=== PATIENT | male | born 1935 | race Caucasian/White ===

== ENCOUNTER → 2020-01-21 | Outpatient (CLI) | payer MEDICARE ==
[~2020-01-21] MED LIST: ASPI81CH PO; AZIT200SU PO; BLOOD PRESSURE MED?; CARV6.25 PO; CEFD300 PO; FAMO20; FISH OIL 1,0001 EAC1; HYDACE5; HYDACE5 PO; IRBHYD150; IRBHYD150 PO; Inderal40 MG; LATA.005SO BOTHEYES; Mysoline250 MG PO; OMEP10ER; PRIM50 PO; ROXICODONE5 MG PO; TYLECOD3 PO
[2020-01-21 09:42] LABS: Alanine Aminotransfer (ALT/SGP 68 U/L (12-78); Albumin, Blood 3.7 g/dL (3.4-5.0); Alk Phos 64 U/L (40-126); Anion Gap 9 mmol/L (6-16); Aspartate Aminotrans (AST/SGOT 59 U/L (12-37); Bilirubin, Total 1.2 mg/dL (0.1-1.0); Blood Urea Nitrogen 23 mg/dL (8-24); Bun/Creatinine Ratio 15.4 (12.0-20.0); CO2, Blood 29 mmol/L (21-32); Calcium, Blood 8.8 mg/dL (8.5-10.1); Chloride, Blood 105 mmol/L (98-108); Creatinine, Blood 1.49 mg/dL (0.60-1.20); Globulin, Blood 3.8 g/dL (2.2-4.0); Glomerular Filtration Rate 45 (60-); Glucose, Blood 115 mg/dL (70-99); Potassium, Blood 4.4 mmol/L (3.5-5.5); Sodium, Blood 143 mmol/L (136-145); Thyroid Stimulating Hormone 1.781 uIU/mL (0.360-4.800); Total Protein, Blood 7.5 g/dL (6.4-8.2); Troponin I <0.017 ng/mL (0.000-0.040)
[2020-01-21 09:44] LABS: BASOPHILS ABSOLUTE AUTO 0.05 K/mm3 (0.00-0.23); BASOPHILS PERCENT AUTO 1 % (0-2); EOSINOPHILS ABSOLUTE AUTO 0.24 K/mm3 (0.00-0.68); EOSINOPHILS PERCENT AUTO 4 % (0-6); Hematocrit 47.9 % (37.0-53.0); Hemoglobin 16.4 g/dL (13.5-17.5); IMMATURE GRAN ABSOLUTE AUTO 0.03 K/mm3 (0.00-0.10); IMMATURE GRAN PERCENT AUTO 1 % (0-1); LYMPHOCYTES ABSOLUTE AUTO 1.65 K/mm3 (0.84-5.20); LYMPHOCYTES PERCENT AUTO 28 % (21-46); MONOCYTES PERCENT AUTO 8 % (4-13); Mean Corpuscular HGB 31.2 pg (26.0-34.0); Mean Corpuscular HGB Conc 34.2 g/dL (31.5-36.5); Mean Corpuscular Volume 91 fL (80-100); Mean Platelet Volume 12.1 fL (9.1-12.4); NEUTROPHILS ABSOLUTE AUTO 3.49 K/mm3 (1.96-9.15); NEUTROPHILS PERCENT AUTO 59 % (41-73); Platelet Count 100 K/mm3 (150-400); RDW Coefficient Variation 13.4 % (11.7-14.2); RDW Standard Deviation 45.1 fL (35.1-46.3); Red Blood Cell Count 5.25 M/mm3 (4.30-5.90); White Blood Cell Count 5.96 K/mm3 (4.00-11.30)
== END | disposition home or self-care (01) ==
LOC: LAB SHORT 09:13 → LAB EV 09:13
PROVIDERS: Physician Assistant
DX: R07.89 Other chest pain (principal); R53.83 Other fatigue
CPT/HCPCS: 80053; 83880; 84443; 84484; 85025

== ENCOUNTER 2020-01-25 22:36 | Emergency (ER) | payer MEDICARE, OTHER ==
[~2020-01-25] VITALS: Ht 170.2 cm; Wt 104.3 kg
[~2020-01-25 22:36] MED LIST changes: -AZIT200SU PO; -CEFD300 PO; -Inderal40 MG
[2020-01-25 23:20] LABS: BASOPHILS ABSOLUTE AUTO 0.06 K/mm3 (0.00-0.23); BASOPHILS PERCENT AUTO 1 % (0-2); EOSINOPHILS ABSOLUTE AUTO 0.23 K/mm3 (0.00-0.68); EOSINOPHILS PERCENT AUTO 4 % (0-6); Hematocrit 48.3 % (37.0-53.0); Hemoglobin 16.4 g/dL (13.5-17.5); IMMATURE GRAN ABSOLUTE AUTO 0.02 K/mm3 (0.00-0.10); IMMATURE GRAN PERCENT AUTO 0 % (0-1); LYMPHOCYTES ABSOLUTE AUTO 1.96 K/mm3 (0.84-5.20); LYMPHOCYTES PERCENT AUTO 31 % (21-46); MONOCYTES ABSOLUTE AUTO 0.53 K/mm3 (0.16-1.47); MONOCYTES PERCENT AUTO 8 % (4-13); Mean Corpuscular HGB 31.5 pg (26.0-34.0); Mean Corpuscular Volume 93 fL (80-100); Mean Platelet Volume 12.1 fL (9.1-12.4); NEUTROPHILS ABSOLUTE AUTO 3.52 K/mm3 (1.96-9.15); NEUTROPHILS PERCENT AUTO 56 % (41-73); Platelet Count 123 K/mm3 (150-400); RDW Coefficient Variation 13.2 % (11.7-14.2); RDW Standard Deviation 44.7 fL (35.1-46.3); Red Blood Cell Count 5.21 M/mm3 (4.30-5.90); White Blood Cell Count 6.32 K/mm3 (4.00-11.30)
[2020-01-25 23:39] LABS: Troponin I <0.015 ng/mL (0.000-0.040)
[2020-01-25 23:47] LABS: Alanine Aminotransfer (ALT/SGP 76 U/L (12-78); Albumin, Blood 3.7 g/dL (3.4-5.0); Albumin/Globulin Ratio 1.1 (0.8-1.8); Alk Phos 68 U/L (50-136); Anion Gap 9 mmol/L (6-16); Aspartate Aminotrans (AST/SGOT 63 U/L (12-37); Bilirubin, Total 0.8 mg/dL (0.1-1.0); Blood Urea Nitrogen 23 mg/dL (8-24); Bun/Creatinine Ratio 16.8 (12.0-20.0); CO2, Blood 24 mmol/L (21-32); Calcium, Blood 8.4 mg/dL (8.5-10.1); Chloride, Blood 107 mmol/L (98-108); Creatinine, Blood 1.37 mg/dL (0.60-1.20); Globulin, Blood 3.5 g/dL (2.2-4.0); Glomerular Filtration Rate 53 (60-); Glucose, Blood 137 mg/dL (70-99); Potassium, Blood 4.6 mmol/L (3.5-5.5); Sodium, Blood 140 mmol/L (136-145); Total Protein, Blood 7.2 g/dL (6.4-8.2)
[2020-01-25] MEDS ORDERED: AZIT200SU PO (23:58)
[2020-01-25] MEDS ORDERED: Inderal40 MG (23:58)
[2020-01-25] MEDS ORDERED: CEFD300 PO (23:58)
== END 2020-01-26 01:29 | disposition home or self-care (01) ==
LOC: ER 22:36
PROVIDERS: Emergency Medicine
DX: R06.00 Dyspnea, unspecified (principal); I10 Essential (primary) hypertension; K21.9 Gastro-esophageal reflux disease without esophagitis; Z79.82 Long term (current) use of aspirin; Z87.891 Personal history of nicotine dependence
CPT/HCPCS: 36415; 71046; 71260; 80053; 83690; 83880; 84484; 85025; 93005; 93010; 96360-59; 96361; 99285-25; J2405; J7030; Q9967

== ENCOUNTER → 2020-02-01 | Outpatient (CLI) | payer MEDICARE, OTHER ==
[~2020-02-01] MED LIST changes: +AZIT200SU PO; +CEFD300 PO; +Inderal40 MG
== END | disposition home or self-care (01) ==
LOC: LAB SHORT 09:19 → LAB EV 09:19
DX: R07.9 Chest pain, unspecified (principal)
CPT/HCPCS: 83880; 84484

== ENCOUNTER 2020-02-13 08:44 | Emergency (ER) | payer MEDICARE, OTHER ==
[~2020-02-13] VITALS: Ht 175.3 cm; Wt 90.7 kg
[2020-02-13 09:24] LABS: BASOPHILS ABSOLUTE AUTO 0.05 K/mm3 (0.00-0.23); BASOPHILS PERCENT AUTO 1 % (0-2); EOSINOPHILS ABSOLUTE AUTO 0.19 K/mm3 (0.00-0.68); EOSINOPHILS PERCENT AUTO 3 % (0-6); Hematocrit 49.7 % (37.0-53.0); Hemoglobin 16.5 g/dL (13.5-17.5); IMMATURE GRAN ABSOLUTE AUTO 0.02 K/mm3 (0.00-0.10); IMMATURE GRAN PERCENT AUTO 0 % (0-1); LYMPHOCYTES ABSOLUTE AUTO 1.36 K/mm3 (0.84-5.20); LYMPHOCYTES PERCENT AUTO 20 % (21-46); MONOCYTES PERCENT AUTO 6 % (4-13); Mean Corpuscular HGB 31.3 pg (26.0-34.0); Mean Corpuscular HGB Conc 33.2 g/dL (31.5-36.5); Mean Corpuscular Volume 94 fL (80-100); Mean Platelet Volume 11.3 fL (9.1-12.4); NEUTROPHILS ABSOLUTE AUTO 4.65 K/mm3 (1.96-9.15); NEUTROPHILS PERCENT AUTO 70 % (41-73); Platelet Count 93 K/mm3 (150-400); RDW Coefficient Variation 13.2 % (11.7-14.2); RDW Standard Deviation 45.6 fL (35.1-46.3); Red Blood Cell Count 5.27 M/mm3 (4.30-5.90); White Blood Cell Count 6.67 K/mm3 (4.00-11.30)
[2020-02-13 09:44] LABS: Alanine Aminotransfer (ALT/SGP 73 U/L (12-78); Albumin, Blood 3.7 g/dL (3.4-5.0); Albumin/Globulin Ratio 1.1 (0.8-1.8); Alk Phos 54 U/L (50-136); Anion Gap 6 mmol/L (6-16); Aspartate Aminotrans (AST/SGOT 67 U/L (12-37); Bilirubin, Total 1.4 mg/dL (0.1-1.0); Blood Urea Nitrogen 23 mg/dL (8-24); Bun/Creatinine Ratio 18.4 (12.0-20.0); CO2, Blood 23 mmol/L (21-32); Calcium, Blood 8.8 mg/dL (8.5-10.1); Chloride, Blood 108 mmol/L (98-108); Creatinine, Blood 1.25 mg/dL (0.60-1.20); Globulin, Blood 3.4 g/dL (2.2-4.0); Glomerular Filtration Rate 58 (60-); Glucose, Blood 106 mg/dL (70-99); Potassium, Blood 4.4 mmol/L (3.5-5.5); Sodium, Blood 137 mmol/L (136-145); Total Protein, Blood 7.1 g/dL (6.4-8.2); Troponin I <0.015 ng/mL (0.000-0.040)
== END 2020-02-13 11:34 | disposition home or self-care (01) ==
LOC: ER 08:44
PROVIDERS: Emergency Medicine
DX: R07.9 Chest pain, unspecified (principal); R06.00 Dyspnea, unspecified; Z87.891 Personal history of nicotine dependence; Z79.899 Other long term (current) drug therapy; Z79.82 Long term (current) use of aspirin
CPT/HCPCS: 36415; 71046; 80053; 84484; 85025; 93005; 93010; 99284-25

== ENCOUNTER → 2020-06-01 | Outpatient (CLI) | payer MEDICARE ==
[~2020-06-01] MED LIST changes: +ALUMINUM H320 MG/5 M PO; +Aspirin EC81 MG PO; +BRIMONIDINE TART5 M1 BOTHEYES; +FURO40; +IRBE75 PO; +Inderal40 MG PO; +LATANOPROST2.5 M1 BOTHEYES; +MIRALAX119 G3 PO; +PANT40 PO; +POTA10T PO; +QVAR REDIHALE10.6 G3; +TRAZ50 PO; +Vibramycin100 MG PO; +Zithromax250 MG PO
[2020-06-01 14:38] LABS: Stool Occult Bld Immuno 1 Negative (NEGATIVE)
== END | disposition home or self-care (01) ==
LOC: LAB SHORT 10:46 → LAB 10:46
PROVIDERS: Internal Medicine Nephrology
DX: N18.3 Chronic kidney disease, stage 3 (moderate) (principal); D63.1 Anemia in chronic kidney disease; N25.81 Secondary hyperparathyroidism of renal origin; E55.9 Vitamin D deficiency, unspecified; E78.00 Pure hypercholesterolemia, unspecified; R76.9 Abnormal immunological finding in serum, unspecified; R94.5 Abnormal results of liver function studies; R94.6 Abnormal results of thyroid function studies; D51.8 Other vitamin B12 deficiency anemias; D52.8 Other folate deficiency anemias; D50.9 Iron deficiency anemia, unspecified
CPT/HCPCS: G0328

== ENCOUNTER → 2020-12-19 | Outpatient (CLI) | payer MEDICARE | END | disposition home or self-care (01) | LOC: LAB 11:39 → LAB SHORT 11:39 | DX: D48.5 Neoplasm of uncertain behavior of skin (principal) | CPT/HCPCS: 88305 ==

== ENCOUNTER → 2021-01-15 | Outpatient (CLI) | payer MEDICARE | LOC: LAB 15:00 → LAB SHORT 15:00 | DX: C44.629 Squamous cell carcinoma of skin of left upper limb, including shoulder (principal) | CPT/HCPCS: 88305 ==

== ENCOUNTER → 2021-06-28 | Outpatient (CLI) | payer MEDICARE | END | disposition home or self-care (01) | LOC: LAB SHORT 10:42 | DX: D04.4 Carcinoma in situ of skin of scalp and neck (principal) | CPT/HCPCS: 88305 ==

== ENCOUNTER 2021-08-29 05:36 | Day surgery (SDC) | payer MEDICARE ==
[~2021-08-29] VITALS: Ht 175.3 cm; Wt 83.1 kg
[2021-08-29] MEDS ORDERED: OMEP20ER PO (06:37)
--- NOTE | 2021-08-29 08:45 | NUR ---
PT TO RECOVERY ROOM POST PROCEDURE. PT AWAKE AND CONVERSING APPROPRIATELY, DENIES PAIN POST PROCEDURE. MONITOR SR 60'S, B/P 165/95, AFEBRILE, SPO2 98% RA. L CHEST GEN CHANGE SITE NO SWELLING/HEMATOMA, TELFA AND GAUZE DRSG INTACT. PT TAKING SIPS OF JUICE WITHOUT ISSUE.
--- NOTE | 2021-08-29 10:40 | NUR ---
PT AMB TO BATHROM WITHOUT ISSUE, VOIDED QS, SITE UNCHANGED WITH ACTIVITY.
--- NOTE | 2021-08-29 12:00 | NUR ---
PT DRESSED SELF WITHOUT ISSUE, SITE UNCHANGED; IV REMOVED-CANNULA INTACT.
--- NOTE | 2021-08-29 12:12 | NUR ---
PT AND SON RECEIVED DISCHARGE INSTRUCTIONS, MED LIST AND AFTER CARE INSTRUCTIONS; VERBALIZED GOOD UNDERSTANDING. PT LEFT FACILITY VIA W/C, CONDITION STABLE.
== END 2021-08-29 12:12 | disposition home or self-care (01) ==
LOC: MHTC 05:36
DX: I49.5 Sick sinus syndrome (principal); G20 Parkinson's disease; I12.9 Hypertensive chronic kidney disease with stage 1 through stage 4 chronic kidney disease, or unspecified chronic kidney disease; N18.9 Chronic kidney disease, unspecified; E78.5 Hyperlipidemia, unspecified; N25.81 Secondary hyperparathyroidism of renal origin
CPT/HCPCS: 33228; 99152; 99153; C1785; J0690; J1580; J1644; J2250; J3010; J7030; J7040

== ENCOUNTER → 2022-01-31 | Outpatient (CLI) | payer MEDICARE ==
[~2022-01-31] MED LIST changes: +OMEP20ER PO
[2022-01-31 13:41] LABS: BASOPHILS ABSOLUTE AUTO 0.03 K/mm3 (0.00-0.23); BASOPHILS PERCENT AUTO 1 % (0-2); EOSINOPHILS ABSOLUTE AUTO 0.14 K/mm3 (0.00-0.68); EOSINOPHILS PERCENT AUTO 3 % (0-6); Hemoglobin 15.7 g/dL (13.5-17.5); IMMATURE GRAN PERCENT AUTO 0 % (0-1); LYMPHOCYTES ABSOLUTE AUTO 1.71 K/mm3 (0.84-5.20); LYMPHOCYTES PERCENT AUTO 32 % (21-46); MONOCYTES ABSOLUTE AUTO 0.47 K/mm3 (0.16-1.47); MONOCYTES PERCENT AUTO 9 % (4-13); Mean Corpuscular HGB 30.8 pg (26.0-34.0); Mean Corpuscular HGB Conc 33.4 g/dL (31.5-36.5); Mean Corpuscular Volume 92 fL (80-100); Mean Platelet Volume 11.9 fL (9.1-12.4); NEUTROPHILS ABSOLUTE AUTO 2.93 K/mm3 (1.96-9.15); NEUTROPHILS PERCENT AUTO 55 % (41-73); Platelet Count 106 K/mm3 (150-400); RDW Coefficient Variation 13.6 % (11.7-14.2); RDW Standard Deviation 46.1 fL (35.1-46.3); White Blood Cell Count 5.28 K/mm3 (4.00-11.30)
[2022-01-31 13:57] LABS: International Normalized Ratio 1.09; Prothrombin Time Results 11.4 Sec (9.7-11.5)
[2022-01-31 14:09] LABS: Alanine Aminotransfer (ALT/SGP 25 U/L (12-78); Albumin, Blood 3.6 g/dL (3.4-5.0); Alk Phos 49 U/L (50-136); Anion Gap 8 mmol/L (6-16); Aspartate Aminotrans (AST/SGOT 23 U/L (12-37); Bilirubin, Direct 0.3 mg/dL (0.0-0.3); Bilirubin, Indirect 0.9 mg/dL (0.1-0.7); Bilirubin, Total 1.2 mg/dL (0.1-1.0); Blood Urea Nitrogen 36 mg/dL (8-24); Bun/Creatinine Ratio 19.4 (12.0-20.0); CO2, Blood 25 mmol/L (21-32); Chloride, Blood 106 mmol/L (98-108); Creatinine, Blood 1.86 mg/dL (0.60-1.20); Globulin, Blood 3.6 g/dL (2.2-4.0); Glomerular Filtration Rate 35 (60-); Glucose, Blood 98 mg/dL (70-99); Phosphorus, Blood 3.1 mg/dL (2.5-4.9); Potassium, Blood 3.9 mmol/L (3.5-5.5); Sodium, Blood 139 mmol/L (136-145); Total Protein, Blood 7.2 g/dL (6.4-8.2)
== END | disposition home or self-care (01) ==
LOC: LAB SHORT 12:17
PROVIDERS: Internal Medicine Nephrology
DX: N18.4 Chronic kidney disease, stage 4 (severe) (principal); D63.1 Anemia in chronic kidney disease; N25.81 Secondary hyperparathyroidism of renal origin; G60.9 Hereditary and idiopathic neuropathy, unspecified; E78.00 Pure hypercholesterolemia, unspecified; R76.9 Abnormal immunological finding in serum, unspecified; R94.5 Abnormal results of liver function studies
CPT/HCPCS: 80053; 82248; 84100; 85025; 85610; 85730; G0103

== ENCOUNTER → 2022-05-09 | Outpatient (CLI) | payer MEDICARE ==
[2022-05-09 10:28] LABS: BASOPHILS ABSOLUTE AUTO 0.04 K/mm3 (0.00-0.23); BASOPHILS PERCENT AUTO 1 % (0-2); EOSINOPHILS ABSOLUTE AUTO 0.13 K/mm3 (0.00-0.68); EOSINOPHILS PERCENT AUTO 2 % (0-6); Hematocrit 44.7 % (37.0-53.0); Hemoglobin 15.2 g/dL (13.5-17.5); IMMATURE GRAN ABSOLUTE AUTO 0.02 K/mm3 (0.00-0.10); IMMATURE GRAN PERCENT AUTO 0 % (0-1); LYMPHOCYTES ABSOLUTE AUTO 0.73 K/mm3 (0.84-5.20); LYMPHOCYTES PERCENT AUTO 13 % (21-46); MONOCYTES ABSOLUTE AUTO 0.56 K/mm3 (0.16-1.47); MONOCYTES PERCENT AUTO 10 % (4-13); Mean Corpuscular HGB 31.9 pg (26.0-34.0); Mean Corpuscular Volume 94 fL (80-100); NEUTROPHILS ABSOLUTE AUTO 4.28 K/mm3 (1.96-9.15); NEUTROPHILS PERCENT AUTO 74 % (41-73); RDW Coefficient Variation 13.5 % (11.7-14.2); RDW Standard Deviation 46.2 fL (35.1-46.3); Red Blood Cell Count 4.77 M/mm3 (4.30-5.90); White Blood Cell Count 5.76 K/mm3 (4.00-11.30)
[2022-05-09 10:43] LABS: Albumin, Blood 3.7 g/dL (3.4-5.0); Albumin/Globulin Ratio 1.2 (0.8-1.8); Bilirubin, Total 1.2 mg/dL (0.1-1.0); Bun/Creatinine Ratio 13.9 (12.0-20.0); Calcium, Blood 8.7 mg/dL (8.5-10.1); Creatinine, Blood 1.66 mg/dL (0.60-1.20); Potassium, Blood 4.3 mmol/L (3.5-5.5); Total Protein, Blood 6.7 g/dL (6.4-8.2)
[2022-05-09 10:57] LABS: Mean Platelet Volume 11.4 fL (9.1-12.4); Platelet Count 79 K/mm3 (150-400)
== END | disposition home or self-care (01) ==
LOC: LAB 10:24 → LAB SHORT 10:24
PROVIDERS: Physician Assistant Surgical
DX: M62.81 Muscle weakness (generalized) (principal)
CPT/HCPCS: 80053; 85025

== ENCOUNTER 2022-09-18 07:12 | Day surgery (SDC) | payer MEDICARE ==
[~2022-09-18] VITALS: Ht 175.3 cm; Wt 82.6 kg
[2022-09-18] MEDS ORDERED: CARV3.125 (07:57)
[2022-09-18] MEDS ORDERED: FAMO10 (07:57)
--- NOTE | 2022-09-18 09:26 | NUR ---
09/18/22 0926 FLORENCE MAIER IV IN RIGHT FOREARM INFILTRATED;NEW IV STARTED BY WILLIS KEITH IN RIGHT FOREARM PATENT .
== END 2022-09-18 09:50 | disposition home or self-care (01) ==
LOC: ORSCSDS 07:12
PROVIDERS: Internal Medicine Gastroenterology
PROC: 0DB58ZX Excision of Esophagus, Via Natural or Artificial Opening Endoscopic, Diagnostic (ICD-10-PCS; principal; 2022-09-18 09:00)
DX: R12 Heartburn (principal); K21.9 Gastro-esophageal reflux disease without esophagitis; K44.9 Diaphragmatic hernia without obstruction or gangrene; Z79.899 Other long term (current) drug therapy; Z87.891 Personal history of nicotine dependence
CPT/HCPCS: 88305; J2704; J7120

== ENCOUNTER 2023-03-09 08:51 | Emergency (ER) | payer MEDICARE ==
[~2023-03-09] VITALS: Ht 175.3 cm; Wt 84.4 kg
[~2023-03-09 08:51] MED LIST changes: +BENZ100A PO; +CARV3.125; +CEPH500 PO; +FAMO10; +Guaifenesin Wit10 ML PO; +NASAL DECONGEST30 ML
[2023-03-09 09:28] VITALS: BP 176/102
== END 2023-03-09 09:39 | disposition home or self-care (01) ==
LOC: ER 08:51
DX: Z00.01 Encounter for general adult medical examination with abnormal findings (principal); I10 Essential (primary) hypertension; K21.9 Gastro-esophageal reflux disease without esophagitis; Z88.8 Allergy status to other drugs, medicaments and biological substances; Z79.899 Other long term (current) drug therapy
CPT/HCPCS: 99282

== ENCOUNTER 2024-05-20 11:51 | Inpatient (IN) | payer MEDICARE ==
[~2024-05-20] VITALS: Ht 175.3 cm; Wt 78.9 kg
[~2024-05-20 11:51] MED LIST changes: +ALYQ20 MG PO; -CARV3.125; +CARV3.125 PO; -FAMO10; +FAMO20 PO; +Flomax0.4 MG PO; +KETO.5OPSO BOTHEYES; -LATANOPROST2.5 M1 BOTHEYES; +MIRALAX17 GM PO
[2024-05-20 12:53] LABS: BASOPHILS ABSOLUTE AUTO 0.02 K/mm3 (0.00-0.23); BASOPHILS PERCENT AUTO 0 % (0-2); EOSINOPHILS ABSOLUTE AUTO 0.08 K/mm3 (0.00-0.68); EOSINOPHILS PERCENT AUTO 2 % (0-6); Hematocrit 46.9 % (37.0-53.0); Hemoglobin 15.8 g/dL (13.5-17.5); IMMATURE GRAN ABSOLUTE AUTO 0.01 K/mm3 (0.00-0.10); IMMATURE GRAN PERCENT AUTO 0 % (0-1); LYMPHOCYTES PERCENT AUTO 22 % (21-46); MONOCYTES ABSOLUTE AUTO 0.28 K/mm3 (0.16-1.47); MONOCYTES PERCENT AUTO 6 % (4-13); Mean Corpuscular HGB 32.4 pg (26.0-34.0); Mean Corpuscular HGB Conc 33.7 g/dL (31.5-36.5); Mean Corpuscular Volume 96 fL (80-100); Mean Platelet Volume 11.4 fL (9.1-12.4); NEUTROPHILS ABSOLUTE AUTO 3.17 K/mm3 (1.96-9.15); NEUTROPHILS PERCENT AUTO 70 % (41-73); Platelet Count 105 K/mm3 (150-400); RDW Coefficient Variation 12.9 % (11.7-14.2); RDW Standard Deviation 45.9 fL (35.1-46.3); Red Blood Cell Count 4.88 M/mm3 (4.30-5.90); White Blood Cell Count 4.56 K/mm3 (4.00-11.30)
[2024-05-20 13:10] LABS: Albumin, Blood 3.7 g/dL (3.4-5.0); Albumin/Globulin Ratio 1.2 (0.8-1.8); Bun/Creatinine Ratio 18.8 (12.0-20.0); Calcium, Blood 8.8 mg/dL (8.5-10.1); Creatinine, Blood 1.44 mg/dL (0.60-1.20); Potassium, Blood 3.9 mmol/L (3.5-5.5); Total Protein, Blood 6.7 g/dL (6.4-8.2)
[2024-05-20 15:11] LABS: Source, Urine Clean Catch
[2024-05-20 15:23] LABS: Appearance, Urine Bloody (Clear); Bilirubin, Urine Neg (Neg); Blood, Urine 5+ (Neg); Color, Urine Red (P-Yellow); Glucose Qualitative, Urine Neg (Neg); Ketones, Urine 1+ (Neg); Leukocyte Esterase, Urine 2+ (Neg); Nitrite, Urine Pos (Neg); Protein, Urine 3+ (Neg); Specific Gravity, Urine 1.025 (1.003-1.022); Urobilinogen, Urine NORM (Normal)
[2024-05-20 15:24] LABS: Bacteria Many /hpf; Red Blood Cells, Urine TNTC /hpf (0-2); Squamous Epithelial Cells Not Seen /hpf (Few)
[2024-05-20] MEDS ORDERED: CefTRIAXone Sodium 1,000 MG in NS 100 ML IV ONE (15:40)
[2024-05-20] MEDS ORDERED: Ondansetron HCl 2 MG / ML 2ML Vial IV PRN (17:50)
[2024-05-20] MEDS ORDERED: Acetaminophen 325 MG TABLET PO PRN (17:50)
[2024-05-20] MEDS ORDERED: NS 1,000 ML IV SCH (17:50)
[2024-05-20] MEDS ORDERED: NS 1,000 ML IV ONE (17:50)
[2024-05-20 18:47] VITALS: BP 181/95
[2024-05-20 20:32] VITALS: BP 162/83
[2024-05-20 20:53] LABS: Hemoglobin 14.6 g/dL (13.5-17.5)
[2024-05-20] MEDS ORDERED: Carvedilol 3.125 MG Tab PO SCH (21:00)
[2024-05-20] MEDS ORDERED: Latanoprost 0.005% Opth Soln 2.5 ML BOTHEYES SCH (21:00)
[2024-05-20] MEDS ORDERED: Ketorolac 0.5% Opth Soln BTL BOTHEYES SCH (21:00)
[2024-05-21 03:08] VITALS: BP 145/88
[2024-05-21 05:34] LABS: Hematocrit 45.7 % (37.0-53.0); Hemoglobin 15.2 g/dL (13.5-17.5); Mean Corpuscular HGB 32.1 pg (26.0-34.0); Mean Corpuscular HGB Conc 33.3 g/dL (31.5-36.5); Mean Corpuscular Volume 96 fL (80-100); Mean Platelet Volume 10.9 fL (9.1-12.4); Platelet Count 96 K/mm3 (150-400); RDW Coefficient Variation 12.9 % (11.7-14.2); Red Blood Cell Count 4.74 M/mm3 (4.30-5.90); White Blood Cell Count 4.81 K/mm3 (4.00-11.30)
[2024-05-21] MEDS ORDERED: Omeprazole 20 MG CapCR PO SCH (06:00)
[2024-05-21 06:11] LABS: Bun/Creatinine Ratio 18.1 (12.0-20.0); Calcium, Blood 8.2 mg/dL (8.5-10.1); Creatinine, Blood 1.16 mg/dL (0.60-1.20); Potassium, Blood 3.7 mmol/L (3.5-5.5)
[2024-05-21 07:25] VITALS: BP 152/89
[2024-05-21] MEDS ORDERED: Tamsulosin HCl 0.4 MG Cap PO SCH (09:00)
[2024-05-21] MEDS ORDERED: Brimonidine Tartrate 0.2% Opth 5 ml BOTHEYES SCH (09:00)
[2024-05-21 14:49] VITALS: BP 102/74
[2024-05-21] MEDS ORDERED: CefTRIAXone Sodium 1,000 MG in NS 100 ML IV SCH (16:00)
--- NOTE | 2024-05-21 17:34 | NUR ---
NO RECTAL BLEEDING THIS SHIFT, URINE ALISSA. PT DENIES ANY PAIN OR NAUSEA. PT WITH BED ALARM IN PLACE, ATTEMPTS TO GET OOB OR CHAIR WITHOUT CALLING FOR ASSIST. PT UNSTEADY ON FEET, USES CANE TO AMBULATE AND 1 PERSON ASSIST. THE [facility] STAFF HERE TO SPEAK WITH PATIENT AND PATIENTS SON. PTS SON STATES HE HAD BEEN TALKING TO STAFF AT THE [facility] AND WAS INTERESTED IN PATIENT MOVING TO THE ASSISTED LIVING
[2024-05-21 19:31] VITALS: BP 151/88
[2024-05-22 04:11] VITALS: BP 159/86
[2024-05-22 04:40] LABS: BASOPHILS ABSOLUTE AUTO 0.04 K/mm3 (0.00-0.23); BASOPHILS PERCENT AUTO 1 % (0-2); EOSINOPHILS ABSOLUTE AUTO 0.25 K/mm3 (0.00-0.68); EOSINOPHILS PERCENT AUTO 5 % (0-6); Hematocrit 45.2 % (37.0-53.0); Hemoglobin 15.4 g/dL (13.5-17.5); IMMATURE GRAN ABSOLUTE AUTO 0.01 K/mm3 (0.00-0.10); IMMATURE GRAN PERCENT AUTO 0 % (0-1); LYMPHOCYTES ABSOLUTE AUTO 1.42 K/mm3 (0.84-5.20); LYMPHOCYTES PERCENT AUTO 30 % (21-46); MONOCYTES ABSOLUTE AUTO 0.44 K/mm3 (0.16-1.47); MONOCYTES PERCENT AUTO 9 % (4-13); Mean Corpuscular HGB 32.4 pg (26.0-34.0); Mean Corpuscular HGB Conc 34.1 g/dL (31.5-36.5); Mean Corpuscular Volume 95 fL (80-100); Mean Platelet Volume 10.7 fL (9.1-12.4); NEUTROPHILS ABSOLUTE AUTO 2.52 K/mm3 (1.96-9.15); NEUTROPHILS PERCENT AUTO 54 % (41-73); Platelet Count 99 K/mm3 (150-400); RDW Coefficient Variation 12.8 % (11.7-14.2); RDW Standard Deviation 45.1 fL (35.1-46.3); Red Blood Cell Count 4.75 M/mm3 (4.30-5.90); White Blood Cell Count 4.68 K/mm3 (4.00-11.30)
[2024-05-22 04:59] LABS: Bun/Creatinine Ratio 14.3 (12.0-20.0); Calcium, Blood 8.5 mg/dL (8.5-10.1); Creatinine, Blood 1.33 mg/dL (0.60-1.20)
--- NOTE | 2024-05-22 05:32 | NUR ---
SHIFT SUMMARY S/P GI BLEED. NO ACUTE CHANGES THIS SHIFT. VSS. TOLERATING CLEAR DIET; PT DENIES N/V. VOIDING USING URINAL & INCONT- ALISSA COLOR; ATTENDS IN USE. NO BM THIS SHIFT. PT REPORTS NO PAIN. PT A&O x2, CONFUSED & COOPERATIVE. PT AMBULATES USING FWW c GB & 1 PERSON MAX ASSIST. PT DOES NOT CALL APPROPRIATELY CONSISTENTLY. CALL LIGHT IN REACH, BED ALARM IN USE, WILL REPORT TO DAY RN.
[2024-05-22 07:39] VITALS: BP 107/73
[2024-05-22] MEDS ORDERED: Famotidine 20 MG Tab PO SCH (09:00)
--- NOTE | 2024-05-22 10:59 | NUR ---
DR HERNANDEZ IN TO SEE PT.
[2024-05-22 14:18] VITALS: BP 101/68
--- NOTE | 2024-05-22 16:33 | NUR ---
SON IN TO SEE PT.
--- NOTE | 2024-05-22 17:47 | NUR ---
SUMMARY PT ORIENTED 2-3. CONFUSED AT TIMES. HAS BEEN COOPERATIVE T/O SHIFT. HAD NORMAL BM TODAY. DR HERNANDEZ STATED PT MAY BE ADVANCED TO REGULAR DIET AND MAY FOLLOW UP OUTPATIENT IF WANTS COLONOSCOPY. SON BEDSIDE. RELAYED INFO TO SON. PT VERY WEAK, 1-2 PERSON ASSIST W/GAIT BELT AND FWW TO STAND AND TRANSFER FROM CHAIR TO BSC. PT HAS BEEN UP TO RECLINER T/O DAY. NOW EATING DINNER. CALL LIGHT IN REACH.
[2024-05-22 19:50] VITALS: BP 154/99
--- NOTE | 2024-05-22 22:31 | NUR ---
TRANSSCHUYLER PT TO TRANSFER TO ROOM 334. REPORT GIVEN TO ULYSSES ARCEO RN TO ASSUME CARE OF PT AT THIS TIME. PT TRANSFERRING IN STABLE CONDITION WITH BODY SHOP MECHANIC AND PATIENT REGISTRATION REP. BELONGINGS IN PLACE.
--- NOTE | 2024-05-22 23:02 | NUR ---
TRANSFER NOTE HANDOFF RECEIVED FROM WILLIS BRITTON. PT ARRIVED TO FLOOR VIA GURNEY. BED ALARM IS ACTIVE. CALL BUTTON WITHIN REACH.
[2024-05-23] MEDS ORDERED: OLANZapine 10 MG Vial IM ONE (00:40)
--- NOTE | 2024-05-23 01:21 | NUR ---
CALLED HOSPITALIST NUMEROUS ATTEMPTS TO EXIT THE BED. HE IS A HIGH FALL RISK. HE IS VERY SHAKY AND UNSTEADY ON HIS FEET. HE IS NOT REDIRECTABLE. NEW ORDERS RECEIVED.
--- NOTE | 2024-05-23 04:09 | NUR ---
SHIFT SUMMARY ADMITTED FOR LOWER GI BLEED. DNR CODE. HE TRANSFERED FROM SURGICAL FLOOR THIS SHIFT. PLAN IS FOR PLACEMENT. HE IS A&O TO SELF. NOT REDIRECTABLE THIS SHIFT. HE IS CONFUSED AND IMPULSIVE. HE HAS A PACEMAKER. PHYSICAL & OCCUPATIONAL THERAPIES ARE ASSISTING. BM ON PREVIOUS SHIFT REPORTED. HE IS WEAK AND UNSTEADY ON HIS FEET, 2 ASSIST TO BSC FOR SAFETY. HE IS ON RA.
[2024-05-23 04:20] VITALS: BP 191/92
[2024-05-23 06:11] LABS: BASOPHILS ABSOLUTE AUTO 0.06 K/mm3 (0.00-0.23); BASOPHILS PERCENT AUTO 1 % (0-2); EOSINOPHILS ABSOLUTE AUTO 0.24 K/mm3 (0.00-0.68); EOSINOPHILS PERCENT AUTO 5 % (0-6); Hematocrit 46.1 % (37.0-53.0); Hemoglobin 15.7 g/dL (13.5-17.5); IMMATURE GRAN ABSOLUTE AUTO 0.01 K/mm3 (0.00-0.10); IMMATURE GRAN PERCENT AUTO 0 % (0-1); LYMPHOCYTES ABSOLUTE AUTO 1.45 K/mm3 (0.84-5.20); LYMPHOCYTES PERCENT AUTO 33 % (21-46); MONOCYTES ABSOLUTE AUTO 0.39 K/mm3 (0.16-1.47); MONOCYTES PERCENT AUTO 9 % (4-13); Mean Corpuscular HGB 32.6 pg (26.0-34.0); Mean Corpuscular HGB Conc 34.1 g/dL (31.5-36.5); Mean Corpuscular Volume 96 fL (80-100); Mean Platelet Volume 10.7 fL (9.1-12.4); NEUTROPHILS ABSOLUTE AUTO 2.26 K/mm3 (1.96-9.15); NEUTROPHILS PERCENT AUTO 51 % (41-73); Platelet Count 90 K/mm3 (150-400); RDW Coefficient Variation 12.8 % (11.7-14.2); RDW Standard Deviation 45.8 fL (35.1-46.3); Red Blood Cell Count 4.81 M/mm3 (4.30-5.90); White Blood Cell Count 4.41 K/mm3 (4.00-11.30)
[2024-05-23 06:36] LABS: Bun/Creatinine Ratio 14.4 (12.0-20.0); Calcium, Blood 8.9 mg/dL (8.5-10.1); Creatinine, Blood 1.25 mg/dL (0.60-1.20); Potassium, Blood 3.8 mmol/L (3.5-5.5)
[2024-05-23 07:08] VITALS: BP 184/117
--- NOTE | 2024-05-23 09:00 | NUR ---
pt laying in bed wakes easily, has jerking movements, a/ox4, cooperative with care, follows commands well, no complaints of pain this am, states she's doing much better today, lungs are clear t/o a bit dim in bases, resp even and unlabored, no cough noted, hrr, no edema noted, ppp +1, cap refill<3 sec, vs stable, afebrile, iv site is clear and patent, btx4, abd flat soft nontender, voids with out diff, skin c/w/d, jl maciel call light in reach. b/p still <100 will hold b/p meds for now.
--- NOTE | 2024-05-23 10:29 | NUR ---
pt laying in bed with kendall vest in place, alert to self, follows commands but has no idea where he is, lungs are clear dim in bases, resp even and unlabored, on r/a, no cough noted, hrr, no edema noted, ppp faint, cap reifll <3 sec, vs stable, afebrile, piv site is clear and patent, btx4 abd flat soft nontender, voids via urinal if has help, otherwise incont, one person assist as he is very unsteady, skin c/w/d, mawe, jl, call light in reach.
[2024-05-23 11:12] VITALS: BP 132/80
[2024-05-23 15:42] VITALS: BP 157/89
--- NOTE | 2024-05-23 18:05 | NUR ---
pt remains in kendall vest as he is busy attemting to get oob, he is not oriented. his son was in to see him, he thought he was going home today. no further changes this shift. call light in reach.
[2024-05-23 19:06] VITALS: BP 151/93
[2024-05-24] VITALS (7 sets, daily range): BP systolic 75–153; BP diastolic 53–106
--- NOTE | 2024-05-24 04:02 | NUR ---
SHIFT SUMMARY. PATIENT IS IN JOSUE VEST FOR SAFETY. PATIENT IS BUSY AND ATTEMPTS TO GET OOB. PATIENT IS CONFUSED, ORIENTED TO HIMSELF ONLY. PATIENT BABBLES AT ITMES. PATIENT REPORTS THAT HE IS GOING CAMPING. PATIENT INCONTINENT AT THIS TIME. PATIENT OFFERED DRINKS AND SNACKS AT ROUNDING AND ASSESSMENT TIMES. PATIENT REMAINS IN JOSUE VEST FOR SAFETY. BED IS LOCKED IN THE LOWEST POSITION WITH CALL LIGHT IN REACH. PATIENT IS LEFT IN A SAFE POSITION. PATIENTS RESPIRATIONS ARE EQUAL AND UNLABORED. PATIENT DENIES A NEED FOR A DRINK AT THIS TIME. PATIENT IS PLEASANTLY CONFUSED. CARE IS ONGOING.
--- NOTE | 2024-05-24 11:52 | NUR ---
PHYSICIAN CONTACT-DIFFFICULT TO AROUSE. PT VERY LETHARGIC THIS AM. ABLE TO AROUSE TO VERBAL STIMULI THIS AM FOR MORNING MED PASS AND BREAKFAST. OCCUPATIONAL THERAPY IN TO SEE THAT PATIENT AND PATIENT NOT AROUSABLE. RN IN TO ASSESS & VITALS TAKEN. BP 106/73. THIS AM IT WAS 153/91. PT WILL NOT OPEN EYES AND ONLY MAKES NOISE TO A STERNAL RUB. DR. MELENDEZ NOTIFIED. ORDER FOR VBG, AMMONIA, BMP, AND CBC PLACED. ORDER TO GIVE 500CC BOLUS OF NS. JOSUE VEST UNTIED PATIENT HAS NOT BEEN TRYING TO GET OOB TODAY. ORDER DISCONTINUED. LAB IN ROOM NOW.
[2024-05-24] MEDS ORDERED: NS 500 ML IV ONE (11:55)
[2024-05-24 12:14] LABS: BASOPHILS ABSOLUTE AUTO 0.07 K/mm3 (0.00-0.23); BASOPHILS PERCENT AUTO 1 % (0-2); EOSINOPHILS ABSOLUTE AUTO 0.24 K/mm3 (0.00-0.68); EOSINOPHILS PERCENT AUTO 4 % (0-6); Hematocrit 45.1 % (37.0-53.0); Hemoglobin 15.4 g/dL (13.5-17.5); IMMATURE GRAN ABSOLUTE AUTO 0.01 K/mm3 (0.00-0.10); IMMATURE GRAN PERCENT AUTO 0 % (0-1); LYMPHOCYTES ABSOLUTE AUTO 1.19 K/mm3 (0.84-5.20); LYMPHOCYTES PERCENT AUTO 22 % (21-46); MONOCYTES ABSOLUTE AUTO 0.41 K/mm3 (0.16-1.47); MONOCYTES PERCENT AUTO 7 % (4-13); Mean Corpuscular HGB 32.2 pg (26.0-34.0); Mean Corpuscular HGB Conc 34.1 g/dL (31.5-36.5); Mean Corpuscular Volume 94 fL (80-100); Mean Platelet Volume 10.9 fL (9.1-12.4); NEUTROPHILS ABSOLUTE AUTO 3.59 K/mm3 (1.96-9.15); NEUTROPHILS PERCENT AUTO 65 % (41-73); Platelet Count 103 K/mm3 (150-400); RDW Coefficient Variation 12.8 % (11.7-14.2); RDW Standard Deviation 44.7 fL (35.1-46.3); Red Blood Cell Count 4.78 M/mm3 (4.30-5.90); White Blood Cell Count 5.51 K/mm3 (4.00-11.30)
[2024-05-24 12:23] LABS: PCO2 Venous 49.2 mmHg (38-42); pH Blood Venous 7.37 (7.34-7.37)
[2024-05-24 12:24] LABS: Bicarbonate Venous 25.5 mmol/L (24.0-30.0)
[2024-05-24 12:33] LABS: Bun/Creatinine Ratio 12.6 (12.0-20.0); Calcium, Blood 8.6 mg/dL (8.5-10.1); Creatinine, Blood 1.51 mg/dL (0.60-1.20); Potassium, Blood 3.8 mmol/L (3.5-5.5)
[2024-05-24] MEDS ORDERED: NS 1,000 ML IV SCH (13:00)
--- NOTE | 2024-05-24 17:50 | NUR ---
SHIFT SUMMARY PT LETHARGIC MOST THE DAY. SEE PREVIOUS NOTES. MORE AROUSABLE THIS AFTERNOON, BUT DINNER WAS HELD FOR SAFETY AT THIS TIME. CT COMPLETED & LABWORK. NO OTHER NEW ORDERS FROM DR. MELENDEZ AT THIS TIME. DR. MELENDEZ IN TO SEE THE PATIENT THIS AFTERNOON, & PT AROUSABLE TO VERBAL STIMULI & TOUOCH AGAIN. SIMILIAR TO THE START OF SHIFT. RESTRAINTS REMAIN OFF AND ORDER DISCONTINUED THEY HAVE NOT BEEN NECESSARY TODAY. BED ALARM IN PLACE. FAMIY AT BEDSIDE AND UPDATED ON PLAN OF CARE AT THIS TIME. PT/OT UNABLE TO BE COMPLETED TODAY DUE TO SEDATION. NO OTHER ACUTE CHANGES IN ASSESSMENT AT THIS TIME. NS RUNNING 100ML/HR ZixiENLY X1 BAG. CALL LIGHT IN REACH.
--- NOTE | 2024-05-24 18:23 | NUR ---
PT WOKE UP PT WOKE UP AND SET HIS BED ALARM OFF. FOUND STANDING IN ROOM. IV PULLED BY THE PATIENT AND GOWN BLOODY. IV SPOT HAS SINCE STOPPED BLEEDING AND IV WAS INTACT. PT BREIF AND BEDDING CHANGED. SAT UPRIGHT IN BED EATING A SNACK AND A CHOCOLATE ENSURE. DR. MELENDEZ NOTIFIED AND ORDER FOR NO IV ACCESS OBTAINED. IV FLUID ORDER DCED. PT ALERT AND ANSWERING QUESTIONS. VERY CONFUSED AND ONLY ORIENTED TO SELF HOWEVER. VS REVIEWED. CALL LIGHT INREACH. BED ALARM IN PLACE.
[2024-05-25 02:09] VITALS: BP 141/85
--- NOTE | 2024-05-25 04:42 | NUR ---
SHIFT SUMMARY ADMITTED FOR GI BLEED - RESOLVED. DNR CODE. PLAN IS FOR PLACEMENT. HE IS ON RA. A&O TO SELF. HE IS CONFUSED AND IMPULSIVE, AND EXITS THE BED FREQUENTLY. THIS SHIFT I HAVE BEEN ABLE TO CONVINCE HIM TO GET BACK INTO BED. HE WAS REPORTED TO BE LETHARGIC DURING THE DAY. THIS SHIFT HE HAS BEEN ALERT AND ACTIVE. SOFT BITE SIZE DIET. 1 ASSIST - BRP.
[2024-05-25 06:01] LABS: BASOPHILS ABSOLUTE AUTO 0.06 K/mm3 (0.00-0.23); BASOPHILS PERCENT AUTO 1 % (0-2); EOSINOPHILS PERCENT AUTO 6 % (0-6); Hematocrit 44.7 % (37.0-53.0); Hemoglobin 15.3 g/dL (13.5-17.5); IMMATURE GRAN ABSOLUTE AUTO 0.01 K/mm3 (0.00-0.10); IMMATURE GRAN PERCENT AUTO 0 % (0-1); LYMPHOCYTES ABSOLUTE AUTO 1.59 K/mm3 (0.84-5.20); LYMPHOCYTES PERCENT AUTO 33 % (21-46); MONOCYTES ABSOLUTE AUTO 0.41 K/mm3 (0.16-1.47); MONOCYTES PERCENT AUTO 9 % (4-13); Mean Corpuscular HGB 32.1 pg (26.0-34.0); Mean Corpuscular HGB Conc 34.2 g/dL (31.5-36.5); Mean Corpuscular Volume 94 fL (80-100); Mean Platelet Volume 10.8 fL (9.1-12.4); NEUTROPHILS ABSOLUTE AUTO 2.45 K/mm3 (1.96-9.15); NEUTROPHILS PERCENT AUTO 51 % (41-73); Platelet Count 91 K/mm3 (150-400); RDW Standard Deviation 44.8 fL (35.1-46.3); Red Blood Cell Count 4.76 M/mm3 (4.30-5.90); White Blood Cell Count 4.82 K/mm3 (4.00-11.30)
[2024-05-25 06:31] LABS: Bun/Creatinine Ratio 17.5 (12.0-20.0); Calcium, Blood 8.6 mg/dL (8.5-10.1); Creatinine, Blood 1.37 mg/dL (0.60-1.20); Potassium, Blood 3.8 mmol/L (3.5-5.5)
[2024-05-25 07:53] VITALS: BP 142/85
[2024-05-25 15:17] VITALS: BP 123/71
--- NOTE | 2024-05-25 15:49 | NUR ---
SHIFT SUMMARY PT NOTED TO BE AWAKE AND ALERT TO SELF THIS SHIFT. PT IS COOPERATIVE WITH STAFF AND FOLLOWS COMMANDS. PT WALKED TO RESTROOM SEVERAL TIMES THIS SHIFT X1 ASSIST WITH GAITBELT AND WALKER. PT HAS BEEN UP TO CHAIR FOR MEALS. PT HAD FAMILY IN ROOM MOST OF THE MORNING AND VISITED WITH THEM. PT DOES HAVE BED ALARM ON D/T FORGETS TO PUSH CALL LIGHT WHEN NEEDING ASSISTANCE.
[2024-05-25 19:11] VITALS: BP 108/88
[2024-05-26 02:46] VITALS: BP 125/65
--- NOTE | 2024-05-26 06:02 | NUR ---
SUMMARY: PT ORIENTED TO SELF ONLY AND HAS BED ALARM ON FOR FALL RISK. HE'S PLEASANTLY CONFUSED BUT CAN BE VERY DIFFICULT TO REDIRECT AT TIMES. HE'S 1-2PA OOB W/FWW AND GB D/T VERY UNSTEADY SHUFFLED GAIT AND LISTING BACKWARDS. HE BECAME MORE RESTLESS, FIDGETY AND IMPULSIVE OOB NOCTE PROGRESSED W/1:1 CLINICAL SITTER REQUIRED FOR PT SAFETY. HE'S MEDICALLY STABLE BUT COG.EVAL SCORE WAS 11 SO PT IS NOW AWAITING POSSIBLE PLACEMENT AT [facility]. NO ACUTE CHANGES, VSS/AFEBRILE. WCTM AND REPORT TO DAY RN.
[2024-05-26 07:22] VITALS: BP 147/125
[2024-05-26] MEDS ORDERED: Bisacodyl 10 MG Supp PR PRN (11:40)
[2024-05-26] MEDS ORDERED: Magnesium Hydroxide Conc 10 ML UDC PO PRN (11:40)
[2024-05-26 16:45] VITALS: BP 162/104
--- NOTE | 2024-05-26 19:32 | NUR ---
PATIENT TRANSFER: PATIENT TRANSFER TO [facility] UN[facility]; PT A&O X1; MULTIPLE ATTEMPTS TO GET OOB & OUT OF CHAIR; NON-REDIRECTABLE. AWAITING PLACEMENT. REPORT GIVEN TO WILLIS FLETCHER.
[2024-05-26 20:20] VITALS: BP 136/78
[2024-05-26] MEDS ORDERED: QUEtiapine Fumarate 50 MG TAB PO SCH (21:00)
[2024-05-26] MEDS ORDERED: Docusate Sodium 100 MG Cap PO SCH (21:00)
[2024-05-26] MEDS ORDERED: Sennosides 8.6 MG Tab PO SCH (21:00)
--- NOTE | 2024-05-27 05:43 | NUR ---
END OF SHIFT SUMMARY PT ALERT, CONFUSED. SLEPT WELL THROUGH THE NIGHT, NO EPISODES OF AGITATION OR COMBATIVENESS. UP TO BR WITH 1XA, FWW, UNSTEADY GAIT. NO ACUTE EVENTS OVERNIGHT.
--- NOTE | 2024-05-27 07:49 | NUR ---
ASSUMED CARE OF PT- REPORT COMPLETED WITH NIGHT RN. PT WAS VERY ACTIVE AND FIDGETY UNTIL THE SEROQUEL. ONCE THE MED STARTED TO WORK, PER REPORT, THE PT RELAXED AND WENT TO SLEEP. HE IS SLEEPING SOUNDLY AT THE CHANGE OF THE SHIFT. NIGHT RN REPORTS THE PT WAS SLEEPING SOUNDLY WHEN THE PRILOSEC WAS DUE SO SHE HELD OFF AND DID NOT WAKE HIM. WILL ADMINISTER THIS MORNING WHEN THE PT WAKES.
[2024-05-27 07:54] VITALS: BP 147/81
[2024-05-27] MEDS ORDERED: Acetaminophen650 M1 PO (13:44)
[2024-05-27] MEDS ORDERED: BISA10S PR (13:45)
[2024-05-27] MEDS ORDERED: Seroquel Xr50 MG PO (13:46)
[2024-05-27] MEDS ORDERED: DOCU100 PO (13:46)
[2024-05-27 16:58] VITALS: BP 124/81
--- NOTE | 2024-05-27 18:38 | NUR ---
SHIFT SUMMARY- PT ALERT AND ORIENTED TO SELF. PT WAS UP IN A CHAIR FOR LUNCH AND AGAIN FOR DINNER. HE HAD A BED BATH AND A FULL LINNEN CHANGE. PT C/O A TUMMY ACHE THIS EVENING. HE WAS ASSISTED BY 2 STAFF TO THE BATHROOM VIA FWW WITH GAIT BELT. PT HAD A LARGE SOLID STOOL THIS EVENING. AFTER THE STOOL HE WAS ASSISTED BACK TO THE CHAIR FOR DINNER. PT ATE 100% OF DINNER AND ASKED FOR A SANDWICH. HE WAS ASSISTED BACK TO BED. PT IN BED, CALL LIGHT IN REACH NO S&S OF DISTRESS NOTED.
[2024-05-27 19:24] VITALS: BP 111/78
[2024-05-27] MEDS ORDERED: Propranolol HCl60 MG PO (23:59)
[2024-05-28] MEDS ORDERED: GEMTESA75 MG PO
[2024-05-28] MEDS ORDERED: FINA5 PO (00:01)
[2024-05-28] MEDS ORDERED: VENLAFAXINE HCL75 M1 PO (00:01)
[2024-05-28 02:38] VITALS: BP 153/89
--- NOTE | 2024-05-28 06:09 | NUR ---
END OF SHIFT SUMMARY PT ALERT AND ORIENTED TO SELF ONLY, NEEDING FREQUENT REORIENTATION. PT ATTEMPTED TO GET OOB A COUPLE TIMES, SETTING OFF BED ALARM. AMBULATED TO BR WITH GB AND FWW AND 1XA, GAIT STEADY BUT TREMULOUS. NEEDING VERBAL CUES FOR SAFETY AND FWW MANAGEMENT. OTHERWISE PT SLEPT WELL THROUGH NIGHT.
[2024-05-28 07:28] VITALS: BP 146/95
[2024-05-28 14:57] VITALS: BP 145/88
--- NOTE | 2024-05-28 17:18 | NUR ---
DISCHARGE NOTE MR JOHNSTON WAS DISCHARGED TO [facility] WITH HIS SON AT 1650[facility]. ASSISTED TO EXIT VIA WHEELCHAIR. NO PIV IN PLACE. SON VERBALISED UNDERSTANDING OF WRITTEN AND VERBAL DISCHARGE INSTRUCTIONS. MR JOHNSTON HAS BEEN CONFUSED, DISORIENTATED, CALM AND PLEASANT. AMBULATED IN HALLS WITH PHYSICAL THERAPY. WALKED TO BR WITH GAIT BELT, WALKER AND 1 PERSON ASISTANCE. GOOD APPETITE. BED AND CHAIR ALARMS USED. NO NEW CONCERNS VOICED PRIOR TO DISCHARGE.
== END 2024-05-28 16:53 | disposition home or self-care (01) | DRG 378 ==
LOC: ER 11:51 → SURS 11:52 → MEDS 05-22 22:41 → ENPENDDIS 05-28 09:41 → MEDS 05-28 16:53
PROVIDERS: Emergency Medicine; Family Medicine; Nurse Practitioner Acute Care; ADMIT Hospitalist
DX: K62.5 Hemorrhage of anus and rectum (principal); F02.818 Dementia in other diseases classified elsewhere, unspecified severity, with other behavioral disturbance; I12.9 Hypertensive chronic kidney disease with stage 1 through stage 4 chronic kidney disease, or unspecified chronic kidney disease; K59.00 Constipation, unspecified; Z66 Do not resuscitate; K21.9 Gastro-esophageal reflux disease without esophagitis; N18.30 Chronic kidney disease, stage 3 unspecified; G25.0 Essential tremor; G30.9 Alzheimer's disease, unspecified; D69.6 Thrombocytopenia, unspecified; R31.9 Hematuria, unspecified; N40.0 Benign prostatic hyperplasia without lower urinary tract symptoms; E78.1 Pure hyperglyceridemia; Z88.8 Allergy status to other drugs, medicaments and biological substances; Z79.899 Other long term (current) drug therapy; Z90.49 Acquired absence of other specified parts of digestive tract; Z98.890 Other specified postprocedural states
CPT/HCPCS: 36415; 70450; 74177; 76857; 80048; 80053; 81001; 82140; 82803; 85014; 85018; 85025; 85027; 86850; 86900; 86901; 87086; 96361; 96365-59; 96366; 96372; 97110; 97116; 97116-CQ; 97129; 97130; 97162; 97166; 97530; 97530-CQ; 97535; 99285-25; A9270; G0378; J0696; J7030; J7040; Q9967

== ENCOUNTER 2024-06-13 23:54 | Inpatient (IN) | payer MEDICARE ==
[~2024-06-13] VITALS: Ht 167.6 cm; Wt 74.7 kg
[~2024-06-13 23:54] MED LIST changes: +Acetaminophen650 M1 PO; +BISA10S PR; +DOCU100 PO; +FINA5 PO; +GEMTESA75 MG PO; +Propranolol HCl60 MG PO; +Seroquel Xr50 MG PO; +VENLAFAXINE HCL75 M1 PO
[2024-06-14] MEDS ORDERED: Ampicillin Sod/Sulbactam Sod 3 GM in NS 100 ML IV ONE (00:05)
[2024-06-14 00:17] LABS: BASOPHILS ABSOLUTE AUTO 0.02 K/mm3 (0.00-0.23); BASOPHILS PERCENT AUTO 0 % (0-2); EOSINOPHILS ABSOLUTE AUTO 0.01 K/mm3 (0.00-0.68); EOSINOPHILS PERCENT AUTO 0 % (0-6); Hematocrit 39.1 % (37.0-53.0); Hemoglobin 13.4 g/dL (13.5-17.5); IMMATURE GRAN ABSOLUTE AUTO 0.05 K/mm3 (0.00-0.10); IMMATURE GRAN PERCENT AUTO 1 % (0-1); LYMPHOCYTES PERCENT AUTO 6 % (21-46); MONOCYTES ABSOLUTE AUTO 0.66 K/mm3 (0.16-1.47); MONOCYTES PERCENT AUTO 8 % (4-13); Mean Corpuscular HGB 32.4 pg (26.0-34.0); Mean Corpuscular HGB Conc 34.3 g/dL (31.5-36.5); Mean Corpuscular Volume 95 fL (80-100); Mean Platelet Volume 11.7 fL (9.1-12.4); NEUTROPHILS ABSOLUTE AUTO 7.16 K/mm3 (1.96-9.15); NEUTROPHILS PERCENT AUTO 85 % (41-73); Platelet Count 77 K/mm3 (150-400); RDW Coefficient Variation 13.4 % (11.7-14.2); RDW Standard Deviation 47.4 fL (35.1-46.3); Red Blood Cell Count 4.13 M/mm3 (4.30-5.90)
[2024-06-14 00:34] LABS: Albumin, Blood 2.5 g/dL (3.4-5.0); Albumin/Globulin Ratio 0.8 (0.8-1.8); Bilirubin, Total 0.7 mg/dL (0.1-1.0); Bun/Creatinine Ratio 23.5 (12.0-20.0); Calcium, Blood 7.9 mg/dL (8.5-10.1); Creatinine, Blood 1.62 mg/dL (0.60-1.20); Globulin, Blood 3.2 g/dL (2.2-4.0); Potassium, Blood 3.7 mmol/L (3.5-5.5); Total Protein, Blood 5.7 g/dL (6.4-8.2)
[2024-06-14 01:28] LABS: Source, Urine Straight Cath
[2024-06-14 01:30] LABS: Bilirubin, Urine Neg (Neg); Blood, Urine 5+ (Neg); Glucose Qualitative, Urine Neg (Neg); Ketones, Urine Neg (Neg); Leukocyte Esterase, Urine 2+ (Neg); Nitrite, Urine Neg (Neg); Protein, Urine 2+ (Neg); Urobilinogen, Urine NORM (Normal)
[2024-06-14] MEDS ORDERED: NS 1,000 ML IV SCH ×2 (01:40→14:45)
[2024-06-14 01:43] LABS: Appearance, Urine Hazy (Clear); Color, Urine Yellow (P-Yellow); Red Blood Cells, Urine 50-100 /hpf (0-2); White Blood Cells, Urine 50-100 /hpf (0-5)
[2024-06-14 01:44] LABS: Bacteria Many /hpf; Squamous Epithelial Cells Not Seen /hpf (Few)
[2024-06-14] MEDS ORDERED: Acetaminophen 500 MG Tab PO ONE (01:55)
[2024-06-14] MEDS ORDERED: CARVEDILOL3.125 MG PO (02:05)
[2024-06-14] MEDS ORDERED: Lactated Ringer's 1,000 ML IV SCH (02:50)
[2024-06-14] MEDS ORDERED: Acetaminophen 325 MG TABLET PO PRN (02:55)
[2024-06-14] MEDS ORDERED: Bisacodyl 10 MG Supp PR PRN (03:00)
[2024-06-14] MEDS ORDERED: TAMS.4ER PO (03:12)
[2024-06-14] MEDS ORDERED: Ibuprofen 600 MG Tab PO ONE (03:30)
[2024-06-14] MEDS ORDERED: Meropenem 1,000 MG in NS 100 ML IV SCH (03:30)
--- NOTE | 2024-06-14 04:07 | NUR ---
ADMIT NOTE 88 YR OLD MALE ADMITTED TO FLOOR FROM THE ED WITH DX OF SEPSIS/UTI. MALE PUREWICK IN USE, ED RN REPORTED PT HAD HEMATURIA AND AWARE. TEMP ELEVATE, HAD TYLENOL AND IBUPROFEN. WILL RETAKE TEMP. PT SLOW TO RESPOND TO QUESTIONS. ED RN REPORTED PT A/O X 1-2. HX HTN, GERD, PACEMAKER, ETC. PT INSTRUCTED ON USE OF CALL LIGHT. RAILS UP X 2 AND BED IN LOW POSITION. CALL LIGHT IN REACH.
[2024-06-14 04:08] VITALS: BP 110/64
--- NOTE | 2024-06-14 04:38 | NUR ---
PT OPENS EYES BUT ONLY VOICED ONE OR TWO WORDS, TEMP 99.0. UNABLE TO ANSWER QUETIONS. WILL ASK AM RN TO FOLLOW UP WITH ADMIT QUESTIONS. INCONT OF FECES, CHANGED AND CLEANED UP. CALL LIGHT IN REACH.
[2024-06-14] MEDS ORDERED: Omeprazole 20 MG CapCR PO SCH (06:00)
[2024-06-14] MEDS ORDERED: Carvedilol 3.125 MG Tab PO SCH (08:00)
[2024-06-14 08:01] VITALS: BP 112/83
[2024-06-14] MEDS ORDERED: Polyethylene Glycol 3350 17 gm PO SCH ×2 (09:00→21:00)
[2024-06-14] MEDS ORDERED: Finasteride 5 MG Tab PO SCH (09:00)
[2024-06-14] MEDS ORDERED: Lactobacil 2-S.Thermo-Bifido 1 1 Cap PO SCH (09:00)
[2024-06-14] MEDS ORDERED: Tamsulosin HCl 0.4 MG Cap PO SCH (09:00)
[2024-06-14] MEDS ORDERED: Ketorolac 0.5% Opth Soln BTL BOTHEYES SCH (09:00)
[2024-06-14] MEDS ORDERED: Polyethylene Glycol 3350 119 GM PO SCH (09:00)
[2024-06-14] MEDS ORDERED: Brimonidine Tartrate 0.2% Opth 5 ml BOTHEYES SCH (09:00)
[2024-06-14] MEDS ORDERED: Enoxaparin 40 MG/0.4 ML SYR SC SCH (09:00)
[2024-06-14] MEDS ORDERED: Docusate Sodium 100 MG Cap PO SCH (09:00)
[2024-06-14] MEDS ORDERED: NS 1,000 ML IV ONE (10:30)
[2024-06-14] MEDS ORDERED: GEMTESA75 MG PO (11:35)
[2024-06-14 15:16] VITALS: BP 145/82
--- NOTE | 2024-06-14 17:41 | NUR ---
SHIFT SUMMARY PT LETHARGIC, RESPONDING TO PAINFUL STUMULI ONLY MOST THE DAY. PT HAD BEDBATH TODAY AND SLEPT THROUGH IT. AT 1630 PT WOKE UP AND BEGAN SPEAKING TO STAFF. STATING HE WAS HUNGRY. PT PROVIDED A ENSURE AND DRANK THE ENTIRE THING. PO MEDS HELD THIS AM DUE TO SEDATION. AFTERNOON COREG HELD DUE TO HR BEING 59. [facility] AT [facility] UPDATED THIS AM ON THE PATIENT. IV FLUIDS STARTED TODAY SINCE PT WAS NOT EATING, NS AT 100 RUNNING X2 BAGS TOTAL THEN STOP PER DR. MEDELLIN. NO OTHER ACUTE CHANGES IN ASSESSMENT AT THIS TIME. VS REVIEWED. CALL LIGHT IN REACH. DENIES OTHER NEEDS AT THIS TIME.
[2024-06-14 20:56] VITALS: BP 129/73
[2024-06-14] MEDS ORDERED: QUEtiapine Fumarate 50 MG TAB PO SCH (21:00)
[2024-06-14] MEDS ORDERED: Latanoprost 0.005% Opth Soln 2.5 ML BOTHEYES SCH (21:00)
[2024-06-15 02:29] VITALS: BP 141/78
--- NOTE | 2024-06-15 03:43 | NUR ---
SOFTWARE QUALITY ASSURANCE ANALYST SUMMARY VSS. TOLERATING MEDS WELL WITH APPLESAUCE. MORE VERBAL THIS SHIFT THAN NOTED 24 HR AGO. RESPONDS TO VERBAL QUESTIONS, BUT SEEMS CONFUSED. MULTIPLE ATTEMPTS TO GET OOB, UNSTEADY. NOT COMPLIANT WITH VERBAL DIRECTIONS FOR SAFETY, MORE CONFUSED. JOSUE VEST PLACED AROUND MIDNIGHT AFTER MULTIPLE ATTEMPTS TO GET OOB FOR SAFETY PER MD ORDERS. HAS BEEN RESTING QUIETLY WITH FEW INTERRUPTIONS. ABLE TO REPOSITION SELF IN BED WITHOUT ASSIST FOR COMFORT. RAILS UP X 3, CALL LIGHT IN REACH AND BED IN LOW POSITION FOR SAFETY. ISOLATION PRECAUTIONS CONTINUE. WILL CONT TO MONITOR
[2024-06-15 05:18] LABS: BASOPHILS ABSOLUTE AUTO 0.02 K/mm3 (0.00-0.23); BASOPHILS PERCENT AUTO 0 % (0-2); EOSINOPHILS ABSOLUTE AUTO 0.05 K/mm3 (0.00-0.68); EOSINOPHILS PERCENT AUTO 1 % (0-6); Hematocrit 39.1 % (37.0-53.0); Hemoglobin 13.1 g/dL (13.5-17.5); IMMATURE GRAN ABSOLUTE AUTO 0.09 K/mm3 (0.00-0.10); IMMATURE GRAN PERCENT AUTO 1 % (0-1); LYMPHOCYTES ABSOLUTE AUTO 0.87 K/mm3 (0.84-5.20); LYMPHOCYTES PERCENT AUTO 11 % (21-46); MONOCYTES ABSOLUTE AUTO 0.75 K/mm3 (0.16-1.47); MONOCYTES PERCENT AUTO 9 % (4-13); Mean Corpuscular HGB 31.7 pg (26.0-34.0); Mean Corpuscular HGB Conc 33.5 g/dL (31.5-36.5); Mean Corpuscular Volume 95 fL (80-100); Mean Platelet Volume 11.7 fL (9.1-12.4); NEUTROPHILS ABSOLUTE AUTO 6.53 K/mm3 (1.96-9.15); NEUTROPHILS PERCENT AUTO 79 % (41-73); Platelet Count 81 K/mm3 (150-400); RDW Coefficient Variation 13.6 % (11.7-14.2); RDW Standard Deviation 47.1 fL (35.1-46.3); Red Blood Cell Count 4.13 M/mm3 (4.30-5.90); White Blood Cell Count 8.31 K/mm3 (4.00-11.30)
[2024-06-15 05:46] LABS: Bun/Creatinine Ratio 25.9 (12.0-20.0); Creatinine, Blood 1.43 mg/dL (0.60-1.20); Phosphorus, Blood 2.9 mg/dL (2.5-4.9); Potassium, Blood 3.5 mmol/L (3.5-5.5)
[2024-06-15 08:07] VITALS: BP 158/90
[2024-06-15 15:32] VITALS: BP 131/89
--- NOTE | 2024-06-15 18:04 | NUR ---
SHIFT SUMMARY PT MUCH MORE ALERT TODAY COMPARED TO YESTERDAY. ORIENTED TO SELF ONLY HOWEVER. VOIDING WELL, INCONTINENTLY. GOOD APPETITE. 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 URINE CLEAR/YELLOW IN COLOR TODAY. REPOSITIONED Q2H HE IS STILL IN A JOSUE DUE TO ATTEMPTS TO GET OOB WITHOUT STAFF OR CALLING. PT DIFFICULT TO REORIENT. PT DAUGHTER, EVARISTO, IN TO VISIT. UPDATED ON PLAN OF CARE. INFORMED THAT STAFF HAS BEEN TRYING TO REACH MOSHE, PT SON FOR 2 DAYS. DAUGHTER LEFT A MESSAGE WITH BRIAN GIRLFRIEND, STATING STAFF NEEDS CONCENT TO PLACE A PICC LINE AND A PREFERRED SNF IS REQUESTED FROM CARE MANAGMENT. MOSHE RETURNED EVARISTO'S CALL. EVARISTO RELAYED THAT "MOSHE IS FRUSTRATED THAT HE HAS PAID 2 MONTHS RENT TO THE [facility] ALREAD[facility] AND WILL NOT GIVE CONSENT FOR ANYTHING UNTIL HE IS ACCEPTED SOMEWHERE FIRST AND THERE IS A DEFINITIVE PLAN". EVARISTO STATES MOSHE WILL COME IN TO THE FACILITY TOMORROW, BUT DID NOT STATE WHAT TIME. RN INFORMED EVARISTO THAT IT HAS BEEN DIFFICULT TO MAKE A DEFINITIVE PLAN, SINCE MOSHE IS VERY DIFFICULT TO GET AHOLD OF. EVARISTO NODDED. NO OTHER ACUTE CHANGES IN ASSESSMENT AT THIS TIME. VS REVIEWED. CALL LIGHT IN REACH. BED ALARM IN PLACE.
[2024-06-15 19:51] VITALS: BP 120/81
[2024-06-16 05:16] LABS: BASOPHILS ABSOLUTE AUTO 0.02 K/mm3 (0.00-0.23); BASOPHILS PERCENT AUTO 0 % (0-2); EOSINOPHILS ABSOLUTE AUTO 0.24 K/mm3 (0.00-0.68); EOSINOPHILS PERCENT AUTO 4 % (0-6); Hematocrit 37.8 % (37.0-53.0); Hemoglobin 12.5 g/dL (13.5-17.5); IMMATURE GRAN ABSOLUTE AUTO 0.05 K/mm3 (0.00-0.10); IMMATURE GRAN PERCENT AUTO 1 % (0-1); LYMPHOCYTES PERCENT AUTO 19 % (21-46); MONOCYTES ABSOLUTE AUTO 0.54 K/mm3 (0.16-1.47); MONOCYTES PERCENT AUTO 8 % (4-13); Mean Corpuscular HGB 31.6 pg (26.0-34.0); Mean Corpuscular HGB Conc 33.1 g/dL (31.5-36.5); Mean Corpuscular Volume 96 fL (80-100); Mean Platelet Volume 11.3 fL (9.1-12.4); NEUTROPHILS ABSOLUTE AUTO 4.41 K/mm3 (1.96-9.15); NEUTROPHILS PERCENT AUTO 68 % (41-73); Platelet Count 105 K/mm3 (150-400); RDW Coefficient Variation 13.6 % (11.7-14.2); RDW Standard Deviation 48.6 fL (35.1-46.3); Red Blood Cell Count 3.96 M/mm3 (4.30-5.90); White Blood Cell Count 6.46 K/mm3 (4.00-11.30)
[2024-06-16 05:42] LABS: Albumin, Blood 2.2 g/dL (3.4-5.0); Albumin/Globulin Ratio 0.7 (0.8-1.8); Bilirubin, Total 0.6 mg/dL (0.1-1.0); Bun/Creatinine Ratio 29.3 (12.0-20.0); Calcium, Blood 8.1 mg/dL (8.5-10.1); Creatinine, Blood 1.33 mg/dL (0.60-1.20); Globulin, Blood 3.1 g/dL (2.2-4.0); Magnesium, Blood 2.3 mg/dL (1.6-2.4); Potassium, Blood 3.6 mmol/L (3.5-5.5); Total Protein, Blood 5.3 g/dL (6.4-8.2)
[2024-06-16 07:35] VITALS: BP 114/65
[2024-06-16 17:10] VITALS: BP 145/76
--- NOTE | 2024-06-16 19:48 | NUR ---
1630- NOTIFIED DR MEDELLIN OF THE CHANGES WITH THE PT BEING MORE SOMNOLANT TODAY AND NOT AWAKE ENOUGH TO EAT ANY MEALS. HAD 100ML OF FLUID AT 1800 ONCE HE WOKE UP ENOUGH TO DRINK WATER. RESTRAINTS DC'D THIS AM AT 0800 BECAUSE HE WAS SLEEPY AND WOKE UP TO FOLLOW COMMANDS AND FALLS RIGHT BACK TO SLEEP. PHYSICAL THERAPY ABLE TO GET HIM TO SIT AT EDGE OF BED, PT ABLE TO HOLD BALANCE, EYES WIDE OPEN, MIN VERBAL. NOD A YES OR NO. BUT LESS ACTIVE FROM WHAT RN REPORTED YESTERDAY. SPOKE ABOUT POSSIBLY STARTING IVF.
--- NOTE | 2024-06-16 19:51 | NUR ---
SUMMARY- PT SOMNOLANT ALL SHIFT. OPENS EYES TO VERBAL, FOLLOWS COMMAND TO SQUEEZE. HEALTH SYSTEMS ANALYST EQUAL. ABLE TO SWALLOW PILLS THIS AM WITH WATER. TURNED Q2. INCONT LG AMOUNTS OF URINE. TOO SLEEPY FOR ANY MEALS TODAY. HAD NO PO INTAKE EXCEPY AM MEDS AND 1800 TOOL IN ABOUT 100ML WATER. NO FAMILY IN TO SEE PATIENT TODAY. SON THAT WAS SUPPOSED TO COME TODAY NEVER CAME IN THAT RN WITNESSED. HELD COREG AM AND PM DOSE FOR TELE RATE 60. PT ON ROOM AIR, LUNGS CLEAR. NO ONE HERE TODAY TO PLACE PICC, AND QUESTION IF FAMILY NEEDS TO CONCENT FIRST. REPORTED ALL TO NOC RN'S TO F/U.
[2024-06-16 20:41] VITALS: BP 164/88
[2024-06-17 05:39] VITALS: BP 163/89
[2024-06-17 06:13] LABS: Hemoglobin 13.9 g/dL (13.5-17.5); Mean Corpuscular HGB 31.6 pg (26.0-34.0); Mean Corpuscular HGB Conc 33.1 g/dL (31.5-36.5); Mean Corpuscular Volume 96 fL (80-100); Platelet Count 121 K/mm3 (150-400); RDW Coefficient Variation 13.4 % (11.7-14.2); White Blood Cell Count 4.64 K/mm3 (4.00-11.30)
[2024-06-17 06:43] LABS: BAND PERCENT MAN 1 % (0-8); BASOPHILS ABSOLUTE MAN 0.04 K/mm3 (0.00-0.23); BASOPHILS PERCENT MAN 1 % (0-2); EOSINOPHILS ABSOLUTE MAN 0.32 K/mm3 (0.00-0.68); EOSINOPHILS PERCENT MAN 7 % (0-6); LYMPHOCYTES ABSOLUTE MAN 0.55 K/mm3 (0.84-5.20); LYMPHOCYTES PERCENT MAN 12 % (21-46); MONOCYTES ABSOLUTE MAN 0.46 K/mm3 (0.16-1.47); MONOCYTES PERCENT MAN 10 % (4-13); PLASMA CELL ABSOLUTE MAN 0.04 K/mm3 (0.00-0.00); PLASMA CELLS PERCENT MAN 1 % (0-0); SEG NEUTROPHILS PERCENT MAN 68 % (41-73); TOTAL CELLS COUNTED 100
[2024-06-17 06:57] LABS: Bun/Creatinine Ratio 23.6 (12.0-20.0); Calcium, Blood 8.3 mg/dL (8.5-10.1); Creatinine, Blood 1.23 mg/dL (0.60-1.20); Magnesium, Blood 2.3 mg/dL (1.6-2.4); Phosphorus, Blood 2.9 mg/dL (2.5-4.9); Potassium, Blood 3.3 mmol/L (3.5-5.5)
[2024-06-17] MEDS ORDERED: Potassium Chl 10MEQ/Water100ML 100 ML IV ONE (07:50)
[2024-06-17] MEDS ORDERED: LORazepam 2 MG/ML 1ML Injection IV ONE (16:50)
[2024-06-17 17:09] VITALS: BP 185/121
--- NOTE | 2024-06-17 19:12 | NUR ---
VSS, Confused and A-O only to self, shows no signs of SOB, shows no signs of pain, ambulates with 2x assist to chair, on RA. Lungs diminished, heart regular, bowel sounds normative, incotentent of urine and stool, impulize and agitated at times, MD notifed. Pt follows direction some of the time, can not make needs known, call hale in hand, bed alarm on at all times, bed in lowest position.
[2024-06-17 19:32] VITALS: BP 147/77
[2024-06-18 05:57] VITALS: BP 141/66
[2024-06-18 06:50] LABS: Hematocrit 42.1 % (37.0-53.0); Mean Corpuscular HGB 31.3 pg (26.0-34.0); Mean Corpuscular HGB Conc 33.3 g/dL (31.5-36.5); Mean Corpuscular Volume 94 fL (80-100); Mean Platelet Volume 10.6 fL (9.1-12.4); Platelet Count 130 K/mm3 (150-400); RDW Coefficient Variation 12.9 % (11.7-14.2); Red Blood Cell Count 4.48 M/mm3 (4.30-5.90); White Blood Cell Count 5.67 K/mm3 (4.00-11.30)
--- NOTE | 2024-06-18 06:57 | NUR ---
NOC SHIFT SUMMARY PT PLEASANTLY CONFUSED AND REDIRECTABLE THROUGHOUT SHIFT. HAD VERY LARGE INCONT EPISODE OF LOOSE BOWEL MOVEMENT. CONDOM CATH WORKING WELL. NO ACUTE ISSUES. STILL TRYING TO GET AHOLD OF SON FOR CONSENT FOR THE PICC. MAY NEED ETHICS CONSULT. BED ALARM ON, CALL LIGHT WITHIN REACH.
[2024-06-18 07:08] LABS: Albumin, Blood 2.3 g/dL (3.4-5.0); Albumin/Globulin Ratio 0.7 (0.8-1.8); BAND PERCENT MAN 2 % (0-8); BASOPHILS PERCENT MAN 0 % (0-2); Bilirubin, Total 0.8 mg/dL (0.1-1.0); Bun/Creatinine Ratio 22.1 (12.0-20.0); Calcium, Blood 8.2 mg/dL (8.5-10.1); Creatinine, Blood 1.13 mg/dL (0.60-1.20); EOSINOPHILS ABSOLUTE MAN 0.28 K/mm3 (0.00-0.68); EOSINOPHILS PERCENT MAN 5 % (0-6); Globulin, Blood 3.2 g/dL (2.2-4.0); LYMPHOCYTES % ATYPICAL MANUAL 4 % (0-0); LYMPHOCYTES ABSOLUTE MAN 1.24 K/mm3 (0.84-5.20); LYMPHOCYTES PERCENT MAN 18 % (21-46); MONOCYTES ABSOLUTE MAN 0.34 K/mm3 (0.16-1.47); MONOCYTES PERCENT MAN 6 % (4-13); Magnesium, Blood 2.3 mg/dL (1.6-2.4); NEUTROPHILS ABSOLUTE MAN 3.79 K/mm3 (1.96-9.15); Phosphorus, Blood 2.5 mg/dL (2.5-4.9); Potassium, Blood 3.6 mmol/L (3.5-5.5); SEG NEUTROPHILS PERCENT MAN 65 % (41-73); TOTAL CELLS COUNTED 100; Total Protein, Blood 5.5 g/dL (6.4-8.2)
[2024-06-18 08:13] VITALS: BP 146/91
[2024-06-18] MEDS ORDERED: QUEtiapine Fumarate 25 MG Tab PO PRN (13:05)
[2024-06-18 15:01] VITALS: BP 136/71
--- NOTE | 2024-06-18 16:50 | NUR ---
SHIFT SUMMARY: PATIENT A/O TO SELF ONLY, CONFUSED, EPISODE OF AGITATION ON/OFF T/O SHIFT. PATIENT HAS ORDER PRN SEROQUEL FOR AGITATION, BUT REFUSED IT. PATIENT PARTICIPATED c PT MOBILITY, ABLE TO SAT UP IN THE FOR LUNCH AND STAYED IN CHAIR FOR ABOUT 1 1/2 AND REQUESTED BACK IN BED. PATIENT INCONTINENT OF BOWEL/BLADDER, CONDOM CATH AND ATTENDS IN PLACED. PATIENT HAD 1 LARGE SOFT, BROWN BM THIS SHIFT. PATIENT RESTING IN BED ON/OFF T/O SHIFT. PATIENT RECEIVED IV ABX/SCHEDULED MEDS PER EMAR. VITAL SIGNS REVIEWED. BED ALARM ON FOR SAFETY. CALL LIGHT IN REACH. PATIENT SON CAME BY THIS PM, SPOKE TO ERADICATOR SOREN AND DR. HACKETT REGARDING PLAN OF CARE.
[2024-06-18 19:56] VITALS: BP 182/96
[2024-06-18 19:58] VITALS: BP 169/87
[2024-06-19 06:05] VITALS: BP 165/91
--- NOTE | 2024-06-19 07:29 | NUR ---
NOC SHIFT SUMMARY PT APPEARED TO BE SUNDOWNING LAST NIGHT. AFTER RECEIVING SEROQUEL HE BECAME PLEASANT AND COOPERATIVE. HE DIDNT FALL ASLEEP UNTIL ABOUT 0300. HE STAYED AWAKE WATCHING TV. CONDOM CATH WORKING WELL. NO ACUTE ISSUES OVERNIGHT. FALL PRECAUTIONS IN PLACE, BED ALARM ON, CALL LIGHT WITHIN REACH, REPORT GIVEN TO MADY.
[2024-06-19 07:41] VITALS: BP 182/85
[2024-06-19 10:30] VITALS: BP 160/78
--- NOTE | 2024-06-19 15:10 | NUR ---
SHIFT/TRANSFERRED SUMMARY: PATIENT A/O TO SELF ONLY, CONFUSED, IMPULSIVE, AND EPISODE OF AGITATION ON/OFF. PATIENT ATTEMPTED TO GET OOB ON NUMEROUS OCCASION WITHOUT USING THE CALL LIGHT. PATIENT MEDICATED X1 c PRN PO SEROQUEL FOR AGITATION c MOD EFFECT. HYPERTENSIVE, VISIBLE TREMORS TO BUE'S. PATIENT RECEIVED IV ABX/SCHEDULED MEDS PER EMAR. PATIENT INCONTINENT OF BOWEL/BLADDER, ATTENDS PLACED AND CHANGED. PATIENT ON CONTACT ISOLATION FOR ESBL IN URINE. PATIENT WILL BE TRANSFERRING TO ROOM 344. TELEPHONE REPORTS GIVEN TO WILLIS FONSECA REGARDING PATIENT CONDITION.
--- NOTE | 2024-06-19 15:13 | NUR ---
IN HOUSE TRANSFER: THIS RN IS ASSUMING CARE OF MR. JOHNSTON. HE WAS BROUGHT TO ROOM 344 FROM 311 ON THE MEDICAL FLOOR. PATIENT VERÓNICA BACK BY STRIP CATCHER'S VIA BED AND WAS SETTLED IN ROOM AND PROVIDED PATIENT BELONGINGS. PATIENT IS ALERT AND CAN COMMUNICATE WITH STAFF. EYE DROPS PLACED IN LOCK DRAWER AND CHART IN LOCK BOX. CALL LIGHT PROVIDED AND BED ALARM SET. NO SIGNS OR SYMPTOMS OF DISTRESS, PLAN OF CARE ONGOING.
[2024-06-19 16:36] VITALS: BP 176/92
[2024-06-19 20:04] VITALS: BP 122/82
[2024-06-19] MEDS ORDERED: NS 250 ML IR PRN (21:00)
[2024-06-20 05:26] VITALS: BP 172/91
--- NOTE | 2024-06-20 06:19 | NUR ---
NO ACUTE CHANGES DURING SHIFT. VSS, BP ELEVATED. ABX ADMINISTERED. PT CONFUSED, ORIENTED TO SELF. PT WAS COOPERATIVE AND REDIRECTABLE. SLEPT MOST OF SHIFT, OCCASIONALLY WAKING UP CONFUSED ABOUT HIS SITUATION. PLEASANT INTERACTIONS.
--- NOTE | 2024-06-20 06:34 | NUR ---
NO ACUTE CHANGES DURING SHIFT. A&OX4. VSS. PT CONTINUES HAVING PRODUCTIVE COUGH WHICH CAUSE HIM HEADACHES PER PT - PRN PAIN AND COUGH MEDS GIVEN WITH PT STATING GREAT RELIEF, ABLE TO SLEEP COMFORTABLY.
[2024-06-20 07:06] VITALS: BP 164/94
[2024-06-20] MEDS ORDERED: Losartan Potassium 25 MG Tab PO SCH (09:00)
[2024-06-20] MEDS ORDERED: Nystatin 100,000 Unit/ML Susp 5 ML UDC SS SCH (13:00)
[2024-06-20 15:59] VITALS: BP 129/90
--- NOTE | 2024-06-20 16:18 | NUR ---
PT AOX1 AND COOPERATIVE OF CARE. PT IS IMPULSIVE AND NEEDS REDIRECTED. PT HAS BEEN RESTING IN BED AND HAS ALTERANTED TO THE RECLINER. PT IS A ONE PERSON ASSIST. TREATED PER EMAR WHEN HE STARTED TO GET HARDER TO REDIRECT. PT SEEMS TO HAVE IMPROVED AND IS RESTING IN BED AT THIS TIME. BED ALARM IS IN PLACE WILL CONTINUE TO MONITOR.
[2024-06-20 19:39] VITALS: BP 125/87
[2024-06-21 05:47] VITALS: BP 126/70
--- NOTE | 2024-06-21 05:55 | NUR ---
NO ACUTE CHANGES DURING SHIFT. PT SLEPT THROUGHOUT SHIFT. ABX ADMINISTERED. CONFUSED BUT PLEASANT DURING INTERACTIONS.
[2024-06-21 07:03] VITALS: BP 127/95
--- NOTE | 2024-06-21 09:27 | NUR ---
PATIENT DECLINED TO TAKE ANY MEDICATIONS THIS MORNING. WILL ATTEMPT AGAIN LATER. THIS RN DID RECEIVE IN REPORT LAST NIGHT THAT HE WAS BEING COMBATIVE WITH CARE, VITALS AND MEDS. WILL ATTEMPT MEDS AGAIN LENCHO.
--- NOTE | 2024-06-21 10:24 | NUR ---
PATIENT ATTEMPTING TO GET OUT OF BED ON OWN. THIS RN AND MEAT SELECTOR ASSISTED BACK INTO BED AND MEDS WERE GIVEN.
[2024-06-21 16:59] VITALS: BP 132/78
--- NOTE | 2024-06-21 17:58 | NUR ---
DAY SHIFT SUMMARY: A&Ox2-3. PLEASANT AND COOPERATIVE WITH CARE. CALLS APPROPRIATELY AND ABLE TO ADVOCATE NEEDS THIS AFTERNOON, THOUGH STRUGGLED THIS MORNING. 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 LARGE BM x2 TODAY. 1PA c FWW. MEDS WHOLE WITH FLUIDS. VSS. FAMILY @ BEDSIDE TODAY. MOTIVATED TO WORK [facility] PHYSICAL THERAPY HE'S WANTING TO GET HOME SOON HE'S ABLE TO. BED IN LOWEST POSITION. CALL LIGHT WITHIN REACH. REPORT TO BE GIVEN TO ONCOMING RN.
[2024-06-21 19:17] VITALS: BP 118/90
[2024-06-22 05:29] VITALS: BP 137/83
--- NOTE | 2024-06-22 07:02 | NUR ---
SHIFT SUMMARY PT IS A&OX2. VSS ON RA. C/O KEARNEY AND ARM PAIN, MANAGED WITH PRN 650 MG PO TYLENOL. TOLERATING A REG DIET. CONTINENT/INCONTINENT OF URINE, BRIEF IN PLACE. URINE IS DARK, AND MALODOROUS. NO BM THIS SHIFT. BED IN LOWEST POSITION CALL LIGHT WITHIN REACH. PT WAS RESISTENT TO CARES. PT DOES NOT USE CALL LIGHT APPROPRIATELY, BED ALARM SET FOR PT'S SAFETY. CONTACT PRECAUTIONS MAINTAINED FOR ESBL IN HIS URINE/BLOOD.
[2024-06-22 07:41] VITALS: BP 158/88
[2024-06-22 15:22] VITALS: BP 131/89
--- NOTE | 2024-06-22 18:00 | NUR ---
SHIFT SUMMARY: PT A/0 X2-3 THIS AM THEN BEGAN TO NEGATIVELY TRANSITION INTO ORIENTED OF SELF ONLY AND ANXIOUS/AGITATED. MEDICATED PT ONCE WITH SEROQUEL. PT UP IN RECLINER FOR ALL MEALS. ABLE TO TRANSFER TO [facility] 1-2P ASSIST USING FWW AND GB. PT WORKED WITH OT THIS SHIFT. DAUGHTER IN TO VISIT THIS AFTERNOON. UPDATED ON PLAN OF CARE. CONTACT PRECAUTIONS IN PLACE FOR ESBL IN URINE/BLOOD. CALL LIGHT IN REACH. IN RECLINER EATING DINNER.
[2024-06-22 19:34] VITALS: BP 129/74
[2024-06-23 03:31] VITALS: BP 144/86
--- NOTE | 2024-06-23 07:49 | NUR ---
SHIFT SUMMARY PT IS A&OX2. VSS ON RA. C/O KEARNEY AND ARM PAIN, MANAGED WITH PRN 650 MG PO TYLENOL. TOLERATING A REG DIET. CONTINENT/INCONTINENT OF URINE, BRIEF IN PLACE. URINE IS DARK, AND MALODOROUS. NO BM THIS SHIFT. BED IN LOWEST POSITION CALL LIGHT WITHIN REACH. PT DOES NOT USE CALL LIGHT APPROPRIATELY, BED ALARM SET FOR PT'S SAFETY. CONTACT PRECAUTIONS MAINTAINED FOR ESBL IN HIS URINE/BLOOD.
[2024-06-23 07:53] VITALS: BP 163/105
[2024-06-23] MEDS ORDERED: NS 100 ML IV ONE ×2 (07:55→15:51)
--- NOTE | 2024-06-23 09:11 | NUR ---
PT SOMNOLANT, UNABLE TO ADMIN MEDS. CLOSES LIPS TIGHT. REFUSING TO OPEN EYES TO STRENAL RUB BUT PUUPOSEFUL IN CLOSING LIPS SHUT. PT RESP EVEN UNLABORED. NO S/S OF DISTRESS. MARIA INES. WILL NOTIFY MD THAT MEDS UNABLE TO BE ADMIN.
[2024-06-23 12:37] VITALS: BP 89/64
[2024-06-23 12:45] VITALS: BP 107/75
[2024-06-23] MEDS ORDERED: LOSA50 PO (14:45)
[2024-06-23] MEDS ORDERED: NYSTATIN100000 U10 MT (14:46)
[2024-06-23 15:10] VITALS: BP 134/78
--- NOTE | 2024-06-23 18:11 | NUR ---
SUMMARY- PT A/O X2, FORGETFUL, PLEASANTLY CONFUSED, DECREASED STM. USED BED ALARM AND CHAIR ALARM ALL DAY. PT OCC FORGETS AND ATTEMPTS TO GET UP UNATTENDED DESPITE REMINDERS. PT USES WALKER, 1 PERSON GAIT BELT, SLOW SHUFFELING GAIT BED TO CHAIR, UNABLE TO GO ANY DISTANCE. PT TOLERATING FOOD AND FLUIDS WITH SET UP. CONTINENT MOST OF THE DAY USING URINAL WITH ASSIST. PLAN FOR PT TO GO HOME, HAS DC ORDERS. GAVE LAST IV ABX, DC'D IV. AWAITING SON TO COME PICK PT UP FOR DC AT AROUND 1999.
--- NOTE | 2024-06-23 20:24 | NUR ---
2010 DISCHARGE PT SON ARRIVED TO DRIVE PT HOME, D/C ORDERS REVIEWED WITH SON, DENIED ANY FURTHER QUESTIONS. PT TAKEN DOWN TO CAR VIA WC WITH GB AND PIPE LINE WALKER ASSIST.
[2024-07-02] MEDS ORDERED: VISBIOME 112.51 EACH PO (14:28)
[2024-07-02] MEDS ORDERED: AUGMENTIN 500-1 EACH PO (14:29)
== END 2024-06-23 20:15 | disposition home or self-care (01) | DRG 720 ==
LOC: ER 23:54 → MEDS 23:55
PROVIDERS: Emergency Medicine; Hospitalist; ADMIT Family Medicine
DX: A41.51 Sepsis due to Escherichia coli [E. coli] (principal); G93.41 Metabolic encephalopathy; N39.0 Urinary tract infection, site not specified; F05 Delirium due to known physiological condition; R65.20 Severe sepsis without septic shock; N18.31 Chronic kidney disease, stage 3a; N40.0 Benign prostatic hyperplasia without lower urinary tract symptoms; F03.911 Unspecified dementia, unspecified severity, with agitation; K21.9 Gastro-esophageal reflux disease without esophagitis; Z66 Do not resuscitate; I12.9 Hypertensive chronic kidney disease with stage 1 through stage 4 chronic kidney disease, or unspecified chronic kidney disease; G20.A1 Parkinson's disease without dyskinesia, without mention of fluctuations; E78.1 Pure hyperglyceridemia; Z87.19 Personal history of other diseases of the digestive system; Z90.49 Acquired absence of other specified parts of digestive tract; Z90.89 Acquired absence of other organs; Z95.5 Presence of coronary angioplasty implant and graft; Z88.8 Allergy status to other drugs, medicaments and biological substances
CPT/HCPCS: 36415; 80048; 80053; 81001; 83605; 83735; 84100; 85025; 87040; 87077; 87086; 87186; 96361; 96365; 96367; 96372; 97110-CQ; 97162; 97165; 97530; 97530-CQ; 97535; 99285; A9270; G0378; J0295; J1650; J2185; J3480; J7030; P9612

== ENCOUNTER 2024-07-12 11:34 | Emergency (ER) | payer MEDICARE ==
[~2024-07-12] VITALS: Ht 175.3 cm; Wt 78.0 kg
[~2024-07-12 11:34] MED LIST changes: +AUGMENTIN 500-1 EACH PO; +CARVEDILOL3.125 MG PO; +LOSA50 PO; +NYSTATIN100000 U10 MT; +TAMS.4ER PO; +VISBIOME 112.51 EACH PO
[2024-07-12] MEDS ORDERED: Norco 5-325 Ta1 EACH PO ×2 (14:13→15:35)
[2024-07-12 14:14] LABS: BASOPHILS ABSOLUTE AUTO 0.03 K/mm3 (0.00-0.23); BASOPHILS PERCENT AUTO 0 % (0-2); EOSINOPHILS ABSOLUTE AUTO 0.05 K/mm3 (0.00-0.68); EOSINOPHILS PERCENT AUTO 1 % (0-6); Hematocrit 45.8 % (37.0-53.0); Hemoglobin 15.7 g/dL (13.5-17.5); IMMATURE GRAN ABSOLUTE AUTO 0.07 K/mm3 (0.00-0.10); IMMATURE GRAN PERCENT AUTO 1 % (0-1); LYMPHOCYTES ABSOLUTE AUTO 1.65 K/mm3 (0.84-5.20); LYMPHOCYTES PERCENT AUTO 16 % (21-46); MONOCYTES ABSOLUTE AUTO 0.71 K/mm3 (0.16-1.47); MONOCYTES PERCENT AUTO 7 % (4-13); Mean Corpuscular HGB 31.5 pg (26.0-34.0); Mean Corpuscular HGB Conc 34.3 g/dL (31.5-36.5); Mean Corpuscular Volume 92 fL (80-100); Mean Platelet Volume 12.1 fL (9.1-12.4); NEUTROPHILS ABSOLUTE AUTO 8.07 K/mm3 (1.96-9.15); NEUTROPHILS PERCENT AUTO 76 % (41-73); Platelet Count 109 K/mm3 (150-400); RDW Coefficient Variation 13.4 % (11.7-14.2); RDW Standard Deviation 45.8 fL (35.1-46.3); Red Blood Cell Count 4.99 M/mm3 (4.30-5.90); White Blood Cell Count 10.58 K/mm3 (4.00-11.30)
[2024-07-12] MEDS ORDERED: Seroquel Xr50 MG PO (14:15)
[2024-07-12 14:33] LABS: Albumin, Blood 3.3 g/dL (3.4-5.0); Albumin/Globulin Ratio 0.9 (0.8-1.8); Bilirubin, Total 1.7 mg/dL (0.1-1.0); Bun/Creatinine Ratio 19.9 (12.0-20.0); Calcium, Blood 8.7 mg/dL (8.5-10.1); Creatinine, Blood 1.51 mg/dL (0.60-1.20); Globulin, Blood 3.6 g/dL (2.2-4.0); Potassium, Blood 3.8 mmol/L (3.5-5.5); Total Protein, Blood 6.9 g/dL (6.4-8.2)
[2024-07-12 14:45] VITALS: BP 136/83
--- NOTE | 2024-07-12 14:50 | NUR ---
Pt seen in ER today after several GLF at his home. His son Abhijeet is currently living with the patient time clerk due to his increased confusion, lack of safety awareness, increased falls, decreased appetite. The patient has multiple stages of bruising to his face, but denies pain at the moment. According to his son, both [facility] and [facility] are coming to evaluate the patient this week at home. Pt has a history of: HTN Parkinson's vs essential tremor and dementia GERD CKD stage 3 Pt's son Abhijeet has a landline at his home, approx [address] from pt's home, so he is able to make calls when needed. The patient was recommended hospice when discharging last week. This is the patient's 9th visit to ED and/or inpatient hospital stay in 7 weeks. is discharging him home, with [facility] admitting on 07/15.
[2024-07-12] MEDS ORDERED: NS 1,000 ML IV SCH (15:00)
[2024-07-12 16:10] LABS: Source, Urine Clean Catch
[2024-07-12 16:23] LABS: Appearance, Urine Hazy (Clear); Bilirubin, Urine Neg (Neg); Blood, Urine 2+ (Neg); Color, Urine Yellow (P-Yellow); Glucose Qualitative, Urine Neg (Neg); Ketones, Urine 1+ (Neg); Leukocyte Esterase, Urine 3+ (Neg); Nitrite, Urine Pos (Neg); Protein, Urine 2+ (Neg); Urobilinogen, Urine NORM (Normal)
[2024-07-12 16:47] LABS: Bacteria Many /hpf; Mucus Light (0-Heavy); Squamous Epithelial Cells Rare /hpf (Few); White Blood Cells, Urine TNTC /hpf (0-5)
== END 2024-07-12 16:12 | disposition home or self-care (01) ==
LOC: ER 11:34
PROVIDERS: Emergency Medicine; Physician Assistant
DX: S02.2XXA Fracture of nasal bones, initial encounter for closed fracture (principal); W18.30XA Fall on same level, unspecified, initial encounter; G20.A1 Parkinson's disease without dyskinesia, without mention of fluctuations; I12.9 Hypertensive chronic kidney disease with stage 1 through stage 4 chronic kidney disease, or unspecified chronic kidney disease; N18.30 Chronic kidney disease, stage 3 unspecified; N39.0 Urinary tract infection, site not specified; K21.9 Gastro-esophageal reflux disease without esophagitis; Z79.899 Other long term (current) drug therapy; Z88.6 Allergy status to analgesic agent; Z88.8 Allergy status to other drugs, medicaments and biological substances; Z87.891 Personal history of nicotine dependence
CPT/HCPCS: 70450; 70486; 72125; 80053; 81001; 85025; J7030

== ENCOUNTER 2024-07-24 12:09 | Inpatient (IN) | payer MEDICARE ==
[~2024-07-24] VITALS: Ht 175.3 cm; Wt 63.3 kg
[~2024-07-24 12:09] MED LIST changes: +Norco 5-325 Ta1 EACH PO
[2024-07-24 13:36] LABS: BASOPHILS ABSOLUTE AUTO 0.03 K/mm3 (0.00-0.23); BASOPHILS PERCENT AUTO 0 % (0-2); EOSINOPHILS ABSOLUTE AUTO 0.03 K/mm3 (0.00-0.68); EOSINOPHILS PERCENT AUTO 0 % (0-6); Hematocrit 37.3 % (37.0-53.0); Hemoglobin 12.6 g/dL (13.5-17.5); IMMATURE GRAN ABSOLUTE AUTO 0.03 K/mm3 (0.00-0.10); IMMATURE GRAN PERCENT AUTO 0 % (0-1); LYMPHOCYTES ABSOLUTE AUTO 0.63 K/mm3 (0.84-5.20); LYMPHOCYTES PERCENT AUTO 8 % (21-46); MONOCYTES ABSOLUTE AUTO 0.65 K/mm3 (0.16-1.47); MONOCYTES PERCENT AUTO 8 % (4-13); Mean Corpuscular HGB Conc 33.8 g/dL (31.5-36.5); Mean Corpuscular Volume 92 fL (80-100); Mean Platelet Volume 10.5 fL (9.1-12.4); NEUTROPHILS ABSOLUTE AUTO 6.81 K/mm3 (1.96-9.15); NEUTROPHILS PERCENT AUTO 83 % (41-73); Platelet Count 144 K/mm3 (150-400); RDW Coefficient Variation 14.4 % (11.7-14.2); RDW Standard Deviation 48.2 fL (35.1-46.3); Red Blood Cell Count 4.07 M/mm3 (4.30-5.90); White Blood Cell Count 8.18 K/mm3 (4.00-11.30)
[2024-07-24] MEDS ORDERED: Meropenem 1,000 MG in NS 100 ML IV ONE (13:50)
[2024-07-24 13:53] LABS: Albumin, Blood 2.9 g/dL (3.4-5.0); Albumin/Globulin Ratio 0.8 (0.8-1.8); Bun/Creatinine Ratio 26.2 (12.0-20.0); Calcium, Blood 8.6 mg/dL (8.5-10.1); Creatinine, Blood 1.87 mg/dL (0.60-1.20); Globulin, Blood 3.5 g/dL (2.2-4.0); Potassium, Blood 4.5 mmol/L (3.5-5.5); Total Protein, Blood 6.4 g/dL (6.4-8.2)
[2024-07-24 14:00] LABS: Source, Urine Clean Catch
[2024-07-24 14:03] LABS: Appearance, Urine Cloudy (Clear); Bilirubin, Urine Neg (Neg); Blood, Urine 4+ (Neg); Color, Urine Yellow (P-Yellow); Glucose Qualitative, Urine Neg (Neg); Ketones, Urine Neg (Neg); Leukocyte Esterase, Urine 3+ (Neg); Nitrite, Urine Pos (Neg); Protein, Urine 3+ (Neg); Specific Gravity, Urine 1.015 (1.003-1.022); Urobilinogen, Urine NORM (Normal)
[2024-07-24 14:12] LABS: White Blood Cells, Urine TNTC /hpf (0-5)
[2024-07-24 14:13] LABS: Bacteria Many /hpf; Squamous Epithelial Cells Not Seen /hpf (Few)
[2024-07-24] MEDS ORDERED: Lactated Ringer's 1,000 ML IV SCH (17:50)
[2024-07-24] MEDS ORDERED: Acetaminophen 325 MG TABLET PO PRN (17:55)
[2024-07-24] MEDS ORDERED: Ondansetron HCl 2 MG / ML 2ML Vial IV PRN (17:55)
[2024-07-24] MEDS ORDERED: NS 1,000 ML IV ONE (18:00)
[2024-07-24 18:52] VITALS: BP 147/123
[2024-07-24] MEDS ORDERED: Meropenem 1,000 MG in NS 100 ML IV SCH (21:00)
[2024-07-24] MEDS ORDERED: Lactobacil 2-S.Thermo-Bifido 1 1 Cap PO SCH (21:00)
[2024-07-25] MEDS ORDERED: OLANZapine 10 MG Vial IM ONE (01:50)
--- NOTE | 2024-07-25 03:09 | NUR ---
SHIFT SUMMARY 89 YR M ADMITTED THIS SHIFT FOR UTI. DNR. PT IS VERY CONFUSED DUE TO ALTERED MENTAL STATUS FROM UTI. PT'S SON STATED THAT HE HAS BEEN GETTING UTI'S FREQUENTLY AND THE AMS IS GETTING WORSE EACH TIME. SON ALSO STATES THAT PT HAS BEEN FALLING DOWN DAILY. PT HAS BRUISES ALL OVER HIS BODY WELL SCRAPES AND CUTS. TWO BLACK EYES WELL. PT'S SON LEFT FOR HOME SHORTLY AFTER ARRIVAL TO THIS UNIT AND PT WAS A VERY POOR HISTORIAN DURING HIS ASSESSMENT. HE WAS, HOWEVER, ABLE TO SAY THAT HIS LEGS ARE TOO WEAK FOR HIM TO WALK. DESPITE THIS, PT ATTEMPTED TO GET UP OUT OF BED SEVERAL TIMES. HE ALSO PULLED OUT HIS IV TWICE. PT WAS UNABLE TO HOLD STILL OR GET COMFORTABLE SO HOSPITALIST WAS NOTIFIED AND IM ZYPREXA WAS GIVEN. PT IS NOW ASLEEP AND APPEARS TO BE COMFORTABLE. HE IS INCONTINENT OF BOWEL AND BLADDER. HE HAS A VERY KIND DEMEANOR AND APOLOGIZES OVER AND OVER FOR "CAUSING TROUBLE".
[2024-07-25 03:54] VITALS: BP 116/67
[2024-07-25 05:47] LABS: Hematocrit 33.3 % (37.0-53.0); Hemoglobin 11.4 g/dL (13.5-17.5); Mean Corpuscular HGB 31.1 pg (26.0-34.0); Mean Corpuscular HGB Conc 34.2 g/dL (31.5-36.5); Mean Corpuscular Volume 91 fL (80-100); Mean Platelet Volume 10.2 fL (9.1-12.4); Platelet Count 124 K/mm3 (150-400); RDW Coefficient Variation 14.5 % (11.7-14.2); RDW Standard Deviation 48.2 fL (35.1-46.3); Red Blood Cell Count 3.67 M/mm3 (4.30-5.90); White Blood Cell Count 6.46 K/mm3 (4.00-11.30)
[2024-07-25] MEDS ORDERED: Omeprazole 20 MG CapCR PO SCH (06:00)
[2024-07-25 06:08] LABS: Magnesium, Blood 1.9 mg/dL (1.6-2.4)
[2024-07-25 06:09] LABS: Bun/Creatinine Ratio 27.3 (12.0-20.0); Calcium, Blood 8.6 mg/dL (8.5-10.1); Creatinine, Blood 1.72 mg/dL (0.60-1.20); Potassium, Blood 4.1 mmol/L (3.5-5.5)
[2024-07-25] MEDS ORDERED: Carvedilol 3.125 MG Tab PO SCH (08:00)
[2024-07-25 08:06] VITALS: BP 110/68
[2024-07-25] MEDS ORDERED: Finasteride 5 MG Tab PO SCH (09:00)
[2024-07-25] MEDS ORDERED: Tamsulosin HCl 0.4 MG Cap PO SCH (09:00)
[2024-07-25] MEDS ORDERED: Heparin Sodium,Porcine 5,000 UNIT/0.5 ML SDV SC SCH (09:00)
[2024-07-25] MEDS ORDERED: OLANZapine 10 MG Vial IM PRN (10:50)
[2024-07-25 15:16] VITALS: BP 111/67
--- NOTE | 2024-07-25 17:05 | NUR ---
Pt A&ox1 to self only. 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 VSS SPO2 98% on RA. Agitated this morning once awake and not cooperative with care and frequently tried to get out of bed, zyprexa ordered, but pt relaxed before medication administration so not administered this shift. As the shift progressed, pt became more cooperative with care and pleasant, but still not oriented. Pt tries to bed exit when his brief is wet, but cooperates with changing and relaxes once clean and dry. Refused to work with physical therapy. Eating about 50% of meals with good oral fluid intake.
[2024-07-25 19:32] VITALS: BP 105/66
[2024-07-26 03:24] VITALS: BP 106/63
--- NOTE | 2024-07-26 05:39 | NUR ---
Patient alert to self only, confused to all else, insistent on "going back to hotel room for the night." Patient compliant with evening medications, tolerating IV Merrem and LR @ 75 to left upper arm PIV. PRN Zyprexa IM given once to right deltoid for agitation, tolerated well. Patient incontinent in brief and using urinal occassionally overnight.
[2024-07-26 09:45] VITALS: BP 124/61
[2024-07-26 15:31] VITALS: BP 144/74
--- NOTE | 2024-07-26 18:09 | NUR ---
PT A&OX1, SELF ONLY, CONFUSED BUT MENTATION IMPROVING. TRIES TO GET OUT OF BED, EASILY REDIRECTABLE. VSS, RA, NON-TELE. LR RUNNING AT 75ML/HR, COREG DISCONTINUED. BED BOUND D/T MULTIPLE FALLS AT HOME, BED RIZO PROVIDED, BRIEFS FREQUENTLY CHANGED. PT ABLE TO MAKE NEEDS KNOWN, GOOD ORAL INTAKE, GOOD UP, 1 SMALL SOFT BROWN BM THIS SHIFT. CALL LIGHT IN REACH.
[2024-07-26] MEDS ORDERED: OLANZapine 5 MG Tab PO SCH (21:00)
[2024-07-27 02:32] VITALS: BP 141/73
--- NOTE | 2024-07-27 04:42 | NUR ---
END OF SHIFT SUMMARY PT DID NOT SLEEP WELL OVERNIGHT. NO AGITATION BUT A LITTLE RESTLESS. CONFUSED BUT PLEASANT. SETS OFF HIS BED ALARM ABOUT EVERY HALF HOUR. NEEDS FREQUENT ONE ON ONE TIME TO CHAT AND RE-ORIENT. SON VISITED FOR A FEW MINUTES.
[2024-07-27 05:57] LABS: BASOPHILS ABSOLUTE AUTO 0.03 K/mm3 (0.00-0.23); BASOPHILS PERCENT AUTO 1 % (0-2); EOSINOPHILS ABSOLUTE AUTO 0.19 K/mm3 (0.00-0.68); EOSINOPHILS PERCENT AUTO 4 % (0-6); Hemoglobin 11.5 g/dL (13.5-17.5); IMMATURE GRAN ABSOLUTE AUTO 0.02 K/mm3 (0.00-0.10); IMMATURE GRAN PERCENT AUTO 0 % (0-1); LYMPHOCYTES ABSOLUTE AUTO 1.34 K/mm3 (0.84-5.20); LYMPHOCYTES PERCENT AUTO 28 % (21-46); MONOCYTES ABSOLUTE AUTO 0.38 K/mm3 (0.16-1.47); MONOCYTES PERCENT AUTO 8 % (4-13); Mean Corpuscular HGB 30.9 pg (26.0-34.0); Mean Corpuscular HGB Conc 33.8 g/dL (31.5-36.5); Mean Corpuscular Volume 91 fL (80-100); Mean Platelet Volume 10.2 fL (9.1-12.4); NEUTROPHILS ABSOLUTE AUTO 2.78 K/mm3 (1.96-9.15); NEUTROPHILS PERCENT AUTO 59 % (41-73); Platelet Count 119 K/mm3 (150-400); RDW Coefficient Variation 14.4 % (11.7-14.2); RDW Standard Deviation 48.2 fL (35.1-46.3); Red Blood Cell Count 3.72 M/mm3 (4.30-5.90); White Blood Cell Count 4.74 K/mm3 (4.00-11.30)
[2024-07-27 06:39] LABS: Bun/Creatinine Ratio 24.8 (12.0-20.0); Calcium, Blood 8.2 mg/dL (8.5-10.1); Creatinine, Blood 1.41 mg/dL (0.60-1.20); Potassium, Blood 3.9 mmol/L (3.5-5.5)
[2024-07-27 15:17] VITALS: BP 102/69
[2024-07-27] MEDS ORDERED: OLANZapine 5 MG Tab PO PRN (16:00)
[2024-07-27] MEDS ORDERED: Amoxicillin/Clavulanate K 500 MG Tab PO SCH (17:00)
--- NOTE | 2024-07-27 17:29 | NUR ---
Pt A&Ox1, self only. Unable to get accurate AM vitals d/t pt agitation, arm clenching and tremors. Pt afternoon vitals stable, RA. Pt worked with PT and OT today and was able to get up in a chair for a few hours. Pt frequently tried to get out of bed, redirected back in bed. Pt pulled out IV, per MD, no IV ok, oral antibiotics ordered. Zyprexa given x1 for bed exiting and line pulling. Pt mostly pleasant and cooperative with care, but confused and forgetful.
[2024-07-27 19:23] VITALS: BP 125/79
[2024-07-27] MEDS ORDERED: TraZODone HCl 50 MG Tab PO SCH (21:00)
[2024-07-28 02:22] VITALS: BP 126/75
--- NOTE | 2024-07-28 02:56 | NUR ---
PT CONFUSED, RESTLESS AND IMPULSIVE. ATTEMPTING OOB WITHOUT ASSIST. PT MEDICATED WITH ZYPREXA IM PER DR ORDERS. PT RESTING QUIETLY IN BED WITH EYES CLOSED AT THIS TIME. NO DISTRES NOTED.
[2024-07-28 07:15] VITALS: BP 112/76
[2024-07-28] MEDS ORDERED: Citalopram Hydrobromide 20 MG Tab PO SCH (14:00)
[2024-07-28 15:04] VITALS: BP 137/80
--- NOTE | 2024-07-28 17:28 | NUR ---
PATIENT ORIENTED TO SELF AND PLEASANT. PATIENT DIFFICULT TO AROUSE FOR FIRST PART OF SHIFT, SLEEPING COMFORTABLY IN BED. INCONTINET/CONTINENT ATTENDS IN PLACE, PATIENT UP TO BSC WITH 2-PERSON ASSIST. TRANSFERRED TO CHAIR, CHAIR ALARM IS ON FOR SAFETY. BED IS IN LOW POSITION AND CALL LIGHT IS WITHIN REACH.
[2024-07-28 20:28] VITALS: BP 149/88
[2024-07-28] MEDS ORDERED: OLANZapine 5 MG Tab PO SCH (21:00)
[2024-07-28] MEDS ORDERED: TraZODone HCl 100 MG Tab PO SCH (21:00)
[2024-07-29] VITALS (7 sets, daily range): BP systolic 88–147; BP diastolic 56–83
--- NOTE | 2024-07-29 04:01 | NUR ---
PT RESTLESS AT TIMES. RESTING QUIETLY IN BED WITH EYES CLOSED AT THIS TIME. RESP EVEN AND UNLABORED. HR REG. NO DISTRESS NOTED.
[2024-07-29 07:16] LABS: BASOPHILS ABSOLUTE AUTO 0.04 K/mm3 (0.00-0.23); BASOPHILS PERCENT AUTO 1 % (0-2); EOSINOPHILS ABSOLUTE AUTO 0.16 K/mm3 (0.00-0.68); EOSINOPHILS PERCENT AUTO 4 % (0-6); Hematocrit 35.5 % (37.0-53.0); Hemoglobin 11.8 g/dL (13.5-17.5); IMMATURE GRAN ABSOLUTE AUTO 0.01 K/mm3 (0.00-0.10); IMMATURE GRAN PERCENT AUTO 0 % (0-1); LYMPHOCYTES ABSOLUTE AUTO 1.05 K/mm3 (0.84-5.20); LYMPHOCYTES PERCENT AUTO 26 % (21-46); MONOCYTES ABSOLUTE AUTO 0.28 K/mm3 (0.16-1.47); MONOCYTES PERCENT AUTO 7 % (4-13); Mean Corpuscular HGB 31.1 pg (26.0-34.0); Mean Corpuscular HGB Conc 33.2 g/dL (31.5-36.5); Mean Corpuscular Volume 93 fL (80-100); Mean Platelet Volume 10.2 fL (9.1-12.4); NEUTROPHILS ABSOLUTE AUTO 2.56 K/mm3 (1.96-9.15); NEUTROPHILS PERCENT AUTO 63 % (41-73); Platelet Count 114 K/mm3 (150-400); RDW Coefficient Variation 14.2 % (11.7-14.2)
[2024-07-29 07:52] LABS: Albumin, Blood 2.5 g/dL (3.4-5.0); Albumin/Globulin Ratio 0.7 (0.8-1.8); Bilirubin, Total 0.7 mg/dL (0.1-1.0); Bun/Creatinine Ratio 25.8 (12.0-20.0); Calcium, Blood 8.7 mg/dL (8.5-10.1); Creatinine, Blood 1.24 mg/dL (0.60-1.20); Globulin, Blood 3.4 g/dL (2.2-4.0); Total Protein, Blood 5.9 g/dL (6.4-8.2)
[2024-07-29] MEDS ORDERED: Enoxaparin 40 MG/0.4 ML SYR SC SCH (09:00)
--- NOTE | 2024-07-29 18:30 | NUR ---
SHIFT SUMMARY PATIENT SLEPT MOST OF THE DAY. PATIENT AWAKE AT THE END OF THE DAY. PATIENT ABLE TO FEED SELF AND FOLLOW DIRECTIONS. PATIENT TO POSSIBLE DISCHARGE TOMORROW. NO FAMILY VISITED TODAY.
[2024-07-30 02:55] VITALS: BP 123/66
--- NOTE | 2024-07-30 03:58 | NUR ---
SHIFT SUMMARY PATIENT IS ALERT AND ORIENTED X2. PATIENT HAS HAD NO ACUTE EVENTS THIS SHIFT. VITAL SIGNS REVIEWED. BP SOFT BUT STABLE THIS SHIFT. PATIENT HAS BEEN IMPULSIVE THIS SHIFT. PATIENT HAS NOT COMPLAINED OF PAIN, NAUSEA, SOB OR VOMMITING THIS SHIFT. BED IN LOCKED AND LOWEST POSITION. BED ALARM ON.
[2024-07-30 07:29] VITALS: BP 101/69
[2024-07-30] MEDS ORDERED: Citalopram Hydrobromide 10 MG TAB PO SCH (09:00)
[2024-07-30] MEDS ORDERED: CITALOPRAM HBR10 MG PO (12:48)
[2024-07-30] MEDS ORDERED: AMOCLA500 PO (12:48)
[2024-07-30] MEDS ORDERED: OLAN5 PO (12:50)
[2024-07-30] MEDS ORDERED: OLAN2.5 PO (12:50)
--- NOTE | 2024-07-30 13:06 | NUR ---
THIS RN CALLED THE PT'S SON TO NOTIFY ABOUT THEIR PHARMACY IS NOT OPEN ON THE WEEKENDS AND TO [facility] [employer] THE MEDICATION BEFORE PICKING UP THE PT TONIGHT. THIS RN LEFT 2 VOICEMAILS TODAY AND HAS NOT RECEIVED A CALL BACK.
[2024-07-30 15:43] VITALS: BP 131/77
--- NOTE | 2024-07-30 17:20 | NUR ---
SHIFT SUMMARY PT WAS A&OX1 AT 0700, BY 1500 PT WAS A&OX3. STILL CONFUSED AND IMPULSIVE. BED/CHAIR ALARM HAVE BEEN ACTIVE FOR ENTIRETY OF SHIFT. THIS RN MADE MULTIPLE ATTEMPTS TO GET IN CONTACT WITH PT'S SON, WHO IS SUPPOSED TO BE PICKING UP THE PT AT 1930. NEW MEDICATIONS WERE FAXED TO [facility] IN [place], AND IS CLOSED ON THE WEEKENDS. MY LAST PHONE ATTEMPT WAS AT APPROXIMATELY 1720 WITH NO ANSWER, VOICEMAIL WAS LEFT.
--- NOTE | 2024-07-30 21:24 | NUR ---
PT DISCHARGED HOME, WITH SON, AT 1935. DC EDUCATION AND INSTRUCTIONS GIVEN TO SON BY WILLIS FOX. SON STATED THAT MEDICATIONS WERE ALREADY PICKED UP FROM PHARMACY. PERSCRIPTION SCRIPT SENT WITH PT'S SON. PT HELPED TO DRESS AND TAKEN BY WHEELCHAIR TO WAITING VEHICLE.
== END 2024-07-30 19:35 | disposition home or self-care (01) | DRG 689 ==
LOC: ER 12:09 → MEDS 17:50 → ENPENDDIS 07-30 10:20 → MEDS 07-30 19:35
PROVIDERS: Internal Medicine; Nurse Practitioner Acute Care; Student in an Organized Health Care Education/Training Program; ADMIT Internal Medicine
DX: N39.0 Urinary tract infection, site not specified (principal); G92.8 Other toxic encephalopathy; N17.9 Acute kidney failure, unspecified; Z66 Do not resuscitate; G30.9 Alzheimer's disease, unspecified; F02.80 Dementia in other diseases classified elsewhere, unspecified severity, without behavioral disturbance, psychotic disturbance, mood disturbance, and anxiety; B96.20 Unspecified Escherichia coli [E. coli] as the cause of diseases classified elsewhere; K21.9 Gastro-esophageal reflux disease without esophagitis; I12.9 Hypertensive chronic kidney disease with stage 1 through stage 4 chronic kidney disease, or unspecified chronic kidney disease; N18.30 Chronic kidney disease, stage 3 unspecified; E78.5 Hyperlipidemia, unspecified; N40.0 Benign prostatic hyperplasia without lower urinary tract symptoms
CPT/HCPCS: 36415; 70450; 72125; 80048; 80053; 81001; 82947; 83735; 85025; 85027; 87077; 87086; 87186; 93005; 93010; 96365; 97116; 97162; 97165; 97530; 99285-25; A9270; J1644; J1650; J2185; J7120

== ENCOUNTER 2024-08-01 13:02 | Emergency (ER) | payer MEDICARE ==
[~2024-08-01] VITALS: Ht 170.2 cm; Wt 68.0 kg
[~2024-08-01 13:02] MED LIST changes: +AMOCLA500 PO; +CITALOPRAM HBR10 MG PO; +OLAN2.5 PO; +OLAN5 PO
[2024-08-01 13:29] LABS: BASOPHILS ABSOLUTE AUTO 0.04 K/mm3 (0.00-0.23); BASOPHILS PERCENT AUTO 1 % (0-2); EOSINOPHILS ABSOLUTE AUTO 0.15 K/mm3 (0.00-0.68); EOSINOPHILS PERCENT AUTO 4 % (0-6); Hematocrit 37.5 % (37.0-53.0); Hemoglobin 12.4 g/dL (13.5-17.5); IMMATURE GRAN ABSOLUTE AUTO 0.01 K/mm3 (0.00-0.10); IMMATURE GRAN PERCENT AUTO 0 % (0-1); LYMPHOCYTES ABSOLUTE AUTO 1.08 K/mm3 (0.84-5.20); LYMPHOCYTES PERCENT AUTO 26 % (21-46); MONOCYTES ABSOLUTE AUTO 0.31 K/mm3 (0.16-1.47); MONOCYTES PERCENT AUTO 7 % (4-13); Mean Corpuscular HGB 30.7 pg (26.0-34.0); Mean Corpuscular HGB Conc 33.1 g/dL (31.5-36.5); Mean Corpuscular Volume 93 fL (80-100); Mean Platelet Volume 10.5 fL (9.1-12.4); NEUTROPHILS ABSOLUTE AUTO 2.59 K/mm3 (1.96-9.15); NEUTROPHILS PERCENT AUTO 62 % (41-73); Platelet Count 109 K/mm3 (150-400); RDW Coefficient Variation 14.5 % (11.7-14.2); RDW Standard Deviation 49.2 fL (35.1-46.3); Red Blood Cell Count 4.04 M/mm3 (4.30-5.90); White Blood Cell Count 4.18 K/mm3 (4.00-11.30)
[2024-08-01 13:45] LABS: Albumin, Blood 2.7 g/dL (3.4-5.0); Albumin/Globulin Ratio 0.8 (0.8-1.8); Bilirubin, Total 0.9 mg/dL (0.1-1.0); Bun/Creatinine Ratio 25.8 (12.0-20.0); Calcium, Blood 8.6 mg/dL (8.5-10.1); Creatinine, Blood 1.28 mg/dL (0.60-1.20); Globulin, Blood 3.4 g/dL (2.2-4.0); Total Protein, Blood 6.1 g/dL (6.4-8.2)
[2024-08-01 15:45] VITALS: BP 127/91
== END 2024-08-01 16:00 | disposition home or self-care (01) ==
LOC: ER 13:02
PROVIDERS: Emergency Medicine
DX: R41.82 Altered mental status, unspecified (principal); Z66 Do not resuscitate; Z79.899 Other long term (current) drug therapy
CPT/HCPCS: 70450; 80053; 85025; 99285-25

== ENCOUNTER → 2024-08-10 | Outpatient (CLI) | payer MEDICARE ==
[2024-08-10 14:11] LABS: Albumin, Blood 2.6 g/dL (3.4-5.0); Anion Gap 10 mmol/L (3-11); Blood Urea Nitrogen 46 mg/dL (8-24); Bun/Creatinine Ratio 28.2 (12.0-20.0); CO2, Blood 25 mmol/L (21-32); Calcium, Blood 8.8 mg/dL (8.5-10.1); Chloride, Blood 107 mmol/L (98-108); Creatinine, Blood 1.63 mg/dL (0.60-1.20); Glomerular Filtration Rate 40 (60-); Glucose, Blood 98 mg/dL (70-99); Phosphorus, Blood 2.9 mg/dL (2.5-4.9); Potassium, Blood 4.1 mmol/L (3.5-5.5); Sodium, Blood 138 mmol/L (136-145)
== END | disposition home or self-care (01) ==
LOC: LAB 10:35 → LAB SHORT 10:35
PROVIDERS: Internal Medicine Nephrology
DX: N18.2 Chronic kidney disease, stage 2 (mild) (principal); D63.1 Anemia in chronic kidney disease; D75.1 Secondary polycythemia; N25.81 Secondary hyperparathyroidism of renal origin; E55.9 Vitamin D deficiency, unspecified; E78.00 Pure hypercholesterolemia, unspecified; R76.9 Abnormal immunological finding in serum, unspecified; R94.5 Abnormal results of liver function studies; R94.6 Abnormal results of thyroid function studies
CPT/HCPCS: 80069; 85018

== ENCOUNTER → 2024-08-10 | Outpatient (CLI) | payer MEDICARE ==
[2024-08-10 16:04] LABS: Source, Urine Clean Catch
[2024-08-10 16:14] LABS: Bacteria Many /hpf; Renal Epithelial Few /hpf (0-Rare); Squamous Epithelial Cells Few /hpf (Few); White Blood Cells, Urine 50-100 /hpf (0-5)
[2024-08-10 16:25] LABS: BASOPHILS ABSOLUTE AUTO 0.02 K/mm3 (0.00-0.23); BASOPHILS PERCENT AUTO 0 % (0-2); EOSINOPHILS ABSOLUTE AUTO 0.06 K/mm3 (0.00-0.68); EOSINOPHILS PERCENT AUTO 1 % (0-6); Hematocrit 34.5 % (37.0-53.0); Hemoglobin 11.4 g/dL (13.5-17.5); IMMATURE GRAN ABSOLUTE AUTO 0.03 K/mm3 (0.00-0.10); IMMATURE GRAN PERCENT AUTO 0 % (0-1); LYMPHOCYTES ABSOLUTE AUTO 1.16 K/mm3 (0.84-5.20); LYMPHOCYTES PERCENT AUTO 13 % (21-46); MONOCYTES ABSOLUTE AUTO 0.69 K/mm3 (0.16-1.47); MONOCYTES PERCENT AUTO 8 % (4-13); Mean Corpuscular HGB 31.1 pg (26.0-34.0); Mean Corpuscular Volume 94 fL (80-100); Mean Platelet Volume 10.4 fL (9.1-12.4); NEUTROPHILS ABSOLUTE AUTO 7.15 K/mm3 (1.96-9.15); NEUTROPHILS PERCENT AUTO 79 % (41-73); Platelet Count 157 K/mm3 (150-400); RDW Coefficient Variation 15.9 % (11.7-14.2); RDW Standard Deviation 54.6 fL (35.1-46.3); Red Blood Cell Count 3.66 M/mm3 (4.30-5.90); White Blood Cell Count 9.11 K/mm3 (4.00-11.30)
[2024-08-10 16:39] LABS: Albumin, Blood 2.6 g/dL (3.4-5.0); Albumin/Globulin Ratio 0.7 (0.8-1.8); Bun/Creatinine Ratio 26.1 (12.0-20.0); Calcium, Blood 8.4 mg/dL (8.5-10.1); Creatinine, Blood 1.8 mg/dL (0.60-1.20); Total Protein, Blood 6.6 g/dL (6.4-8.2)
== END | disposition home or self-care (01) ==
LOC: LAB SHORT 16:02 → LAB 16:02
PROVIDERS: Physician Assistant Medical
DX: R10.84 Generalized abdominal pain (principal); I10 Essential (primary) hypertension
CPT/HCPCS: 80053; 81015; 85025; 87077; 87086; 87186